=== PATIENT | male | born 1975 | race Caucasian/White ===

== ENCOUNTER 2025-01-27 18:54 | Emergency (ER) | payer MEDICAID, SELFPAY ==
[2025-01-27 19:54] VITALS: BP 160/94; PULSE 87; RESP 20; TEMP 36.9; O2SAT 98; BMI 32.3
--- NOTE | 2025-01-27 20:14 | ED_ITS ---
Discharge Plan Disposition Patient Disposition: Home, Self-Care Condition: Good Prescriptions Prescriptions: New metformin 1,000 mg tablet 1,000 mg PO DAILY Qty: 30 0RF Referrals Follow up/Referrals: Devan Sandoval DO [Staff Physician, Orthopedics] - See instructions Provider,Referral, [Primary Care Provider, Medical] - See instructions Activity Restrictions/Add. Instructions Additional Instructions/Restrictions: I encourage you to follow-up with a primary care physician on the list provided to you to help manage your diabetes and provide long-term care. You are also being referred to Dr. Sandoval with orthopedic surgery for your carpal tunnel syndrome. I encourage you to wear the splint on your arm at all times until you are able to be seen by the orthopedic surgeon. You can take Tylenol and NSAIDs, such as ibuprofen, to help with your symptoms in the meantime. Clinical Impressions Clinical Impression: Acute carpal tunnel syndrome, Acute hyperglycemia Print Language Print Language: Lao Discharge ED Provider: Ty Harper General Adult HPI General Chief complaint: PAIN Stated complaint: Right hand pain Time Seen by Provider: 01/27/25 19:48 Mode of Arrival: Ambulatory Source of Information: Patient and Spouse Description of Symptoms (Recalled from ER Triage Doc. 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 Pt reports he is a diabteic as well but has been out of insulin and metofrmin due to no PCP History of Present Illness HPI narrative: Delbert Lazo is a 49y male with a history of diabetes who presents to the emergency department for complaints of right hand pain and numbness. Patient notes that 13 years ago, he was told that he needs carpal tunnel surgery, however he lost weight and never had the surgery. He states that on , he closed his fist and felt pain and numbness and tingling along his thumb, first digit and half of his third digit. He states that his painful and difficult to pinch using those fingers. He states that he feels like something is catching in his wrist. He has been taking ibuprofen without relief. He also states that he has not had insulin in 6 months and ran out of his metformin and another diabetic medication a few days ago. They state that his blood sugar ranges from 250-4 100s, however he is otherwise asymptomatic. He denies any trauma to the hand. Related Data Previous Rx's ?Medication ?Instructions ?Recorded metformin 1,000 mg tablet 1,000 mg PO DAILY #30 tabs 0 01/27/25 Allergies Allergy/AdvReac Type Severity Reaction Status Date / Time No Known Allergies Allergy Verified 01/27/25 19:58 [facility] Disclaimer: The information contained in this section may have been updated after the patient was seen, as this information can be updated by other users. Social History Smoking Status: Never smoker alcohol intake: never current occupational status: employed Travel in the last 8 weeks?: None ROS Obtained: Yes Systems reviewed as appropriate & no additional complaints except as documented Physical Exam General General appearance: alert and in no apparent distress Head Head exam: atraumatic Eye Eye exam: Present normal appearance ENT ENT exam: Present normal external ear exam Neck Neck exam: Present full ROM Chest Chest inspection: Present symmetric chest wall rise Respiratory Respiratory exam: Present normal lung sounds bilaterally; Absent respiratory distress Cardiovascular Cardiovascular exam: Present regular rate and normal rhythm Abdominal Exam Abdominal exam: Present soft; Absent tenderness or guarding exam: Present deferred Extremities Exam Extremities exam: Present normal inspection and other (Right upper extremity: Positive Tinel sign. Flexor and tendon function intact throughout all fingers and joint spaces. 2+ radial pulse. Subjective decrease sensation over the 1st, 2nd and 3rd digits. Unable to perform Phalen test secondary to significant symptoms.) Back Exam Back exam: Present normal inspection Neurological Exam Neurological exam: Present alert and oriented X3 Psychiatric Psychiatric exam: Present normal affect Skin Skin exam: Present warm and dry Medical Decision Making Medical Records Screening: Per USPSTF and CDC recommendations, given the prevalence of disease in our region, it is our hospital?s policy to screen for HIV and viral Hepatitis for all patients aged 18 and over and those with ongoing risk factors. Darryl Inquiry Pt receiving controlled substance: No Vital Signs: 01/27/25 19:54 Temperature 98.4 F Temperature Source Oral Pulse Rate [Right] 87 Respiratory Rate 20 Blood Pressure [Right Arm] 160/94 H Blood Pressure Mean [Right Arm] 116 02 Sat by Pulse Oximetry 98 Oxygen Delivery Method Room Air Medical Decision Narrative: Delbert Lazo is a 49y male with a history of diabetes who presents to the emergency department for complaints of right hand pain and numbness. Patient notes that 13 years ago, he was told that he needs carpal tunnel surgery, however he lost weight and never had the surgery. He states that on , he closed his fist and felt pain and numbness and tingling along his thumb, first digit and half of his third digit. He states that his painful and difficult to pinch using those fingers. He states that he feels like something is catching in his wrist. He has been taking ibuprofen without relief. He also states that he has not had insulin in 6 months and ran out of his metformin and another diabetic medication a few days ago. They state that his blood sugar ranges from 250-4 100s, however he is otherwise asymptomatic. He denies any trauma to the hand. On arrival, patient is hypertensive with blood pressure 160/94, heart rate within normal limits, afebrile, breathing fine on room air with oxygen saturation 98% SpO2. Physical exam, stated above, revealed an overall well-appearing male in no distress. He notes that he is right-handed and uses that extremity a lot while at work. He has positive Tinel sign and subjective numbness and tingling over the first third digits of the right hand. Flexor and extensor function intact throughout all digits and joint spaces. No cellulitic changes. Less than 2-second capillary refill. There is low concern for any traumatic bony pathology as patient did not have any traumatic mechanism with the onset of symptoms. There is low concern for any vascular pathology as patient has good capillary refill and strong palpable pulses. Physical exam and symptomatology are most consistent with carpal tunnel syndrome and no x-ray or CT imaging is indicated at this time.. Given this, will give patient a thumb spica splint and referral to Dr. Sandoval with orthopedic surgery as he may need carpal release surgery. Instructed him to take Tylenol and ibuprofen to help with symptoms. Patient's glucose is elevated over 400 today, consistent with his diabetes being nonmedicated. Will provide patient with prescription for 30-day supply of metformin and will give list of primary care providers for him to establish care for someone to manage his diabetes more long-term. Return precautions were given. All questions were answered. He demonstrated understanding and was in agreement this plan. He was then discharged from the emergency department in stable condition Critical Care Critical Care Time Critical Care Time: No
[2025-01-27 20:17] VITALS: BP 168/98; PULSE 87; RESP 18; TEMP 36.9; O2SAT 99
== END 2025-01-27 20:21 | disposition home or self-care (01) ==
PROVIDERS: Emergency Provider Student in an Organized Health Care Education/Training Program
DX: M79.641 Pain in right hand (principal); G56.01 Carpal tunnel syndrome, right upper limb; E11.65 Type 2 diabetes mellitus with hyperglycemia
CPT/HCPCS: 99283

== ENCOUNTER 2025-01-30 11:54 | Outpatient (CLI) | payer MEDICAID, SELFPAY ==
--- NOTE | 2025-01-30 | XR_ITS ---
FINAL REPORT CLINICAL HISTORY: .carpal tunnel, pain of the 2nd digit on lateral sides FINDINGS: RIGHT HAND Three views were obtained. There is no fracture or dislocation. There is mild osteoarthritis of the DIP joints, most pronounced of the third digit. No soft tissue abnormality is identified. IMPRESSION: Mild osteoarthritis. Reviewed, Interpreted and Dictated by Cece Freeman MD Transcribed by Ame Hillman Authenticated and [facility]
--- NOTE | 2025-01-30 11:58 | XR_ITS ---
FINAL REPORT CLINICAL HISTORY: right wrist pain FINDINGS: RIGHT WRIST Three views were obtained. There is no fracture or dislocation. The joint spaces appear normal. No soft tissue abnormality is identified. IMPRESSION: No acute process. Reviewed, Interpreted and Dictated by Cece Freeman MD Transcribed by Ame Hillman Authenticated and [facility]
== END 2025-01-30 23:59 | disposition home or self-care (01) ==
LOC: RAD 11:55
PROVIDERS: Visit Provider Physician Assistant
DX: M19.041 Primary osteoarthritis, right hand (principal); M25.531 Pain in right wrist
CPT/HCPCS: 73110; 73130

== ENCOUNTER 2025-01-30 13:18 | Outpatient (CLI) | payer MEDICAID, SELFPAY | END 2025-01-30 23:59 | disposition home or self-care (01) | LOC: RAD 13:19 | PROVIDERS: Visit Provider Physician Assistant | DX: M65.30 Trigger finger, unspecified finger (principal) ==

== ENCOUNTER 2025-01-31 14:47 | Emergency (ER) | payer MEDICAID, SELFPAY ==
[2025-01-31] VITALS (7 sets, daily range): BP systolic 135–172; BP diastolic 74–101; PULSE 62–78; RESP 16–18; TEMP 36.6–36.7; O2SAT 97–100; BMI 32.3
--- NOTE | 2025-01-31 15:21 | CA_ITS ---
FINAL REPORT TECHNIQUE: Graded compression, spectral analysis and ultrasound images of the venous system of the right upper extremity were obtained. 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 The other segments are fully compressible and demonstrate no evidence of thrombosis. No definite involvement of the subclavian vein. IMPRESSION: Complete thrombosis right axillary vein. Reviewed, Interpreted and Dictated by Cece Freeman MD Transcribed by Jsoeline Cooper Authenticated and [facility]
--- NOTE | 2025-01-31 15:21 | CT_ITS ---
PROCEDURE INFORMATION: Exam: CTA Right Upper Extremity With Contrast Exam date and time: 01/31/2025 5:19 PM Age: 49 years old Clinical indication: Swelling; Hand; Right; Additional info: Swelling right hand, traumatic injury, R/O vasc occlus TECHNIQUE: Imaging protocol: Computed tomographic angiography of the right upper extremity with contrast, including non-contrast images if performed. 3D rendering (Not supervised by radiologist): MIP and/or 3D reconstructed images were created by the technologist. Radiation optimization: All CT scans at this facility use at least one of these dose optimization techniques: automated exposure control; mA and/or kV adjustment per patient size (includes targeted exams where dose is matched to clinical indication); or iterative reconstruction. Contrast material: ISOVUE 370; Contrast volume: 80 ml; Contrast route: INTRAVENOUS (IV); COMPARISON: CT ANGIO UE RT 01/31/2025 4:11 PM FINDINGS: Right subclavian artery: No occlusion or significant stenosis. Axillary artery: No occlusion or significant stenosis. Brachial artery: No occlusion or significant stenosis. Radial artery: No occlusion or significant stenosis. Ulnar artery: No occlusion or significant stenosis. Soft tissues: Unremarkable. IMPRESSION: Unremarkable CTA of the right upper extremity.
--- NOTE | 2025-01-31 15:30 | ED_ITS ---
Discharge Plan Disposition Patient Disposition: Home, Self-Care Condition: Good Prescriptions Prescriptions: New Eliquis DVT-PE Treat 30D Start 5 mg (74 tabs) tablets,dose pack 5 mg PO BID Qty: 74 0RF No Action celecoxib [Celebrex] 50 mg capsule 50 mg PO BID Qty: 60 2RF tramadol 50 mg tablet 50 mg PO Q8H PRN (Reason: pain) Qty: 30 0RF cyclobenzaprine 10 mg tablet 10 mg PO HS PRN (Reason: muscle spasm) Qty: 30 0RF metformin 1,000 mg tablet 1,000 mg PO DAILY Qty: 30 0RF Referrals Follow up/Referrals: Devan Sandoval DO [Staff Physician, Orthopedics] - See instructions Hector Dixon MD [Staff Physician, Oncology] - See instructions Provider,MD Bisi [Primary Care Provider, Medical] - See instructions Activity Restrictions/Add. Instructions Additional Instructions/Restrictions: You were evaluated in the emergency department today. CT scans do not show any arterial occlusions or blockages, but you do have a blood clot in one of your veins of your right arm. For this, we are starting you on a blood thinner called Eliquis. Please pick this up at clinic pharmacy, where they will help get a prior authorization for your insurance. Make note that blood thinners increase your risk of bleeding in the event of falls or traumatic injuries, such as brain bleeds. They also increased risk of GI bleeding or blood in your stools. Return to the emergency department right away for new or worsening symptoms such as chest pain, shortness of breath, or other concerns. Please call orthopedics to schedule an outpatient appointment for follow-up of your hand pain. I also recommend follow-up with Dr. Nicolas with hematology given this blood clot, since you do not have any other known risk factors. 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 by RN): Pt presents for evaluation of right hand pain x 7 days. Pt states the pain started after he had been pressure washing. Pt states pain starts in his hand and radiates to his elbow. Pt states he was seen this AM at the orthopedic clinic History of Present Illness HPI narrative: This patient is a 49-year-old male with past medical history of diabetes presenting to the emergency department for evaluation of concern for right hand pain for 1 week. Patient was evaluated here 01/27/2025 for right hand pain and numbness in the setting of prior history of carpal tunnel syndrome. He had pain and felt like something scratching in his wrist and he was able to close his hand, so x-rays were obtained which were negative. He was deemed to be neurovascularly intact and appropriate for discharge with orthopedic follow-up. He followed up with orthopedics today, where there was concern noted for possible vascular occlusion/blood clot, and he was sent to the emergency department to obtain an angiogram of the right upper extremity to look for occlusion or vascular pathology. Patient states since being evaluated here, he developed significant pain in his right index finger, especially on the palmar surface of the finger. He notes it is tender to palpation. He states that he is able to move it, but with any active attempted flexion, he has severe pain and feels like his hands going to explode. He denies any known traumatic injuries or wounds, such as puncture wounds or breaks in the skin. He denies any history of blood clots or clotting issues. No fevers, chills, or systemic symptoms. Related Data Previous Rx's ?Medication ?Instructions ?Recorded metformin 1,000 mg tablet 1,000 mg PO DAILY #30 tabs 0 01/27/25 celecoxib 50 mg capsule (Celebrex) 50 mg PO BID #60 ca ps 01/30/25 apixaban 5 mg (74 tabs) tablets in 5 mg PO BID #74 tab s 01/31/25 a dose pack (Eliquis DVT-PE Treat 30D Start) cyclobenzaprine 10 mg tablet 10 mg PO HS PRN muscle sp asm #30 01/31/25 tabs tramadol 50 mg tablet 50 mg PO Q8H PRN pain #30 ta bs 01/31/25 Allergies Allergy/AdvReac Type Severity Reaction Status Date / Time No Known Allergies Allergy Verified 01/31/25 13:50 [facility] Disclaimer: The information contained in this section may have been updated after the patient was seen, as this information can be updated by other users. Social History Smoking Status: Never smoker alcohol intake: never current occupational status: employed Travel in the last 8 weeks?: None Have you lived/traveled outside US in past 30 days?: No Contact w/someone who lives/traveled outside US past 30 days?: No Exposure to someone with infectious disease in past 14 days?: No Do you have a fever (greater than 100.4 F or 38 C)?: No Have you tested positive for COVID-19?: No Exposed to someone with COVID-19 in past 14 days?: No Do you have a sore throat?: No Do you have a cough?: No Do you have any weakness?: No Do you have any diarrhea?: No Are you experiencing any unusual bleeding?: No Do you have any muscle aches/pain?: No Do you have any abdominal pain?: No Are you experiencing loss of taste or smell?: No ROS Obtained: Yes All systems reviewed & no additional complaints except as documented Physical Exam General General appearance: alert and in no apparent distress Head Head exam: atraumatic and normocephalic Eye Eye exam: Present normal appearance, PERRL and EOMI ENT ENT exam: Present normal exam, normal oropharynx, mucous membranes moist and normal external ear exam Neck Neck exam: Present normal inspection, full ROM and trachea midline; Absent tenderness Chest Chest inspection: Present normal inspection and symmetric chest wall rise; Absent tenderness Respiratory Respiratory exam: Present normal lung sounds bilaterally; Absent respiratory distress, wheezes, stridor or accessory muscle use Cardiovascular Cardiovascular exam: Present regular rate and normal rhythm Abdominal Exam Abdominal exam: Present soft; Absent distention, tenderness or guarding Extremities Exam Extremities exam: Present tenderness, normal capillary refill, edema and other (Swelling of the right hand. Tenderness to palpation of the flexor surface of the right index finger. No redness, warmth, or skin lesions. Sensation intact. Full passive range of motion, but pain with active flexion.); Absent full ROM Back Exam Back exam: Present normal inspection and full ROM; Absent tenderness Neurological Exam Neurological exam: Present alert, oriented X3, CN II-XII intact and normal gait; Absent motor sensory deficit Psychiatric Psychiatric exam: Present normal affect and normal mood Skin Skin exam: Present warm and dry Medical Decision Making Medical Records Medical records reviewed: Yes I reviewed the patient's medical records. Screening: Per USPSTF and CDC recommendations, given the prevalence of disease in our region, it is our hospital?s policy to screen for HIV and viral Hepatitis for all patients aged 18 and over and those with ongoing risk factors. Darryl Inquiry Pt receiving controlled substance: No Vital Signs: 01/31/25 14:55 01/31/25 16:22 01/31/25 16:30 Temperature 98 F Temperature Source Oral Pulse Rate 78 64 Pulse Rate [Right] 70 Respiratory Rate 18 Blood Pressure 157/94 H 169/89 H Blood Pressure [Right Arm] 172/88 H Blood Pressure Mean [Right Arm] 116 Blood Pressure Source Blood Pressure Source [Right Arm] Automatic Cuff Blood Pressure Position Blood Pressure Position [Right Arm] Sitting 02 Sat by Pulse Oximetry 100 98 98 Oxygen Delivery Method Room Air 01/31/25 17:31 01/31/25 18:00 01/31/25 18:12 Temperature Temperature Source Pulse Rate 62 70 65 Pulse Rate [Right] Respiratory Rate Blood Pressure 172/95 H 169/101 H 167/95 H Blood Pressure [Right Arm] Blood Pressure Mean [Right Arm] Blood Pressure Source Blood Pressure Source [Right Arm] Blood Pressure Position Blood Pressure Position [Right Arm] 02 Sat by Pulse Oximetry 99 99 99 Oxygen Delivery Method Room Air 01/31/25 18:30 Temperature 98.1 F Temperature Source Oral Pulse Rate 75 Pulse Rate [Right] Respiratory Rate 16 Blood Pressure 135/74 Blood Pressure [Right Arm] Blood Pressure Mean [Right Arm] Blood Pressure Source Automatic Cuff Blood Pressure Source [Right Arm] Blood Pressure Position Supine Blood Pressure Position [Right Arm] 02 Sat by Pulse Oximetry Oxygen Delivery Method Room Air Lab Data Lab results reviewed: Yes I reviewed the patient's lab results. Lab Results 01/31/25 15:37: WBC 7.5, RBC 5.05, Hgb 15.5, Hct 43.5, MCV 86.1, MCH 30.7, MCHC 35.6 H, RDW 12.0, Plt Count 272, MPV 9.9, Neut % (Auto) 63.5, Lymph % (Auto) 25.6, Braxton % (Auto) 7.6, Eos % (Auto) 2.3, Baso % (Auto) 0.7, Neut # (Auto) 4.8, Lymph # (Auto) 1.9, Braxton # (Auto) 0.6, Eos # (Auto) 0.2, Baso # (Auto) 0.1, ESR 12, PT 11.6, INR 1.05, APTT 24.3, Sodium 136, Potassium 4.2, Chloride 101, Carbon Dioxide 28, Anion Gap 11.2, BUN 17, Creatinine 0.70, Estimated Creat Clear 166, Estimated GFR 120, Est GFR ( Amer) 146, Glucose 372 H, Calcium 9.1, C-Reactive Protein 1.5 01/31/25 15:37 01/31/25 15:37 Orders (Tests/Meds): ED MEDICATIONS Discontinued Medications Generic Name Dose Route Start Last Admin Trade Name Freq PRN Reason Stop Dose Admin Apixaban 5 mg 01/31/25 18:12 01/31/25 18:44 Apixaban 5mg Tablet PO 01/31/25 18:13 5 mg ONCE ONE Administration Lactated Ringer's 1,000 mls @ 999 mls/hr 01/31/25 17:01 01/31/25 17:18 Lactated Ringer's 1000 Ml Bag IV 01/31/25 18:01 999 mls/hr .Q1H1M ONE Administration Iopamidol 80 ml 01/31/25 16:10 01/31/25 16:21 Iopamidol-370 (76%);100ml Bottle IV 01/31/25 16:11 80 ml ONCE ONE Administration Iopamidol 80 ml 01/31/25 16:13 01/31/25 16:21 Iopamidol-370 (76%);100ml Bottle IV 01/31/25 16:14 80 ml ONCE ONE Administration Iopamidol 80 ml 01/31/25 17:26 01/31/25 17:27 Iopamidol-370 (76%);100ml Bottle IV 01/31/25 17:27 80 ml ONCE ONE Administration Ketorolac Tromethamine 15 mg 01/31/25 15:28 01/31/25 15:37 Ketorolac 30mg/Ml Vial IV 01/31/25 15:29 15 mg ONCE ONE Administration Morphine Sulfate 4 mg 01/31/25 17:10 01/31/25 17:18 Morphine 4mg/Ml Syringe IV 01/31/25 17:11 4 mg ONCE ONE Administration Ondansetron HCl 4 mg 01/31/25 17:10 01/31/25 17:18 Ondansetron 4mg/2ml Vial IV 01/31/25 17:11 4 mg ONCE ONE Administration Oxycodone HCl 10 mg 01/31/25 18:23 01/31/25 18:44 Oxycodone 5mg Immediate Release Tablet PO 01/31/25 18:24 10 mg ONCE ONE Administration Sodium Chloride 40 ml 01/31/25 16:10 01/31/25 16:20 0.9 % Sodium Chloride 50 Ml Vial IV 01/31/25 16:11 40 ml ONCE ONE Administration Sodium Chloride 10 ml 01/31/25 16:10 01/31/25 16:21 Sodium Chloride 0.9% 10ml Syr (Rad Only) IV 01/31/25 16:11 10 ml ONCE ONE Administration Sodium Chloride 40 ml 01/31/25 16:13 01/31/25 16:21 0.9 % Sodium Chloride 50 Ml Vial IV 01/31/25 16:14 40 ml ONCE ONE Administration Sodium Chloride 10 ml 01/31/25 17:26 01/31/25 17:27 Sodium Chloride 0.9% 10ml Syr (Rad Only) IV 01/31/25 17:27 10 ml ONCE ONE Administration Sodium Chloride 50 ml 01/31/25 17:26 01/31/25 17:27 0.9 % Sodium Chloride 50 Ml Vial IV 01/31/25 17:27 50 ml ONCE ONE Administration ORDERS Category Date Time Status CT angio UE RT Stat Cat Scan 01/31/25 15:21 Completed CTA Chest [CT angio chest PE protocol] Stat Cat Scan 01/31/25 15:50 Completed BMP [Basic Metabolic Panel] Stat Lab 01/31/25 15:37 Completed CRP [C-Reactive Protein] Stat Lab 01/31/25 15:37 Completed Complete Blood Count Auto Diff Stat Lab 01/31/25 15:37 Completed ESR [Erythrocyte Sedimentation Rate] Stat Lab 01/31/25 15:37 Completed PT INR [Prothrombin Time INR] Stat Lab 01/31/25 15:37 Completed PTT [Activated Partial Thrombo Time] Stat Lab 01/31/25 15:37 Completed CA venous doppler UE RT Stat Y 01/31/25 15:21 Completed Medical Decision Narrative: In summary, this patient is a 49-year-old male presenting to the Emergency Department for evaluation of right hand pain and swelling. Differential diagnoses considered include but are not limited to cellulitis, flexor tenosynovitis, DVT, arterial occlusion, tendon injury, among others. Ruling out the most morbid conditions drove assessment. It should be noted patient's history includes diabetes which may or may not be at goal therapy. This complicates all aspects of care by increasing patient's risk for morbidity. I reviewed patient's past medical records and noted patient in the ED 01/27 as well as by orthopedics yesterday and today as detailed in HPI. On exam, the patient is sitting upright in no acute distress. He has tenderness to palpation of the palmar and radial aspects of the right index finger with no redness, warmth, or skin color changes. No wounds or lesions. He is warm well- perfused with intact sensation distally. He has pain with range of motion but range of motion is preserved. Workup included CBC, CMP, ESR, CRP, coags, DVT ultrasound of the right upper extremity, and CTA of the right upper extremity. He is initially given IV Toradol for symptomatic improvement of pain. I independently interpreted DVT ultrasound prior to the radiologist read and noted axillary vein thrombosis. Please see their read for final interpretation. CTA PE protocol was also added onto workup given this. Patient went for CTA, however radiology noted that the CTA did not demonstrate any contrast in the right upper extremity to evaluate for arterial occlusion. Given this, it had to be repeated. Patient's pain recurred again though it initially improved with Toradol, so he was then given IV morphine and Zofran. Labs were obtained that demonstrated reassuring CBC with no significant leukocytosis or anemia. Platelet count is normal. Chemistry is normal with normal inflammatory markers including ESR and CRP.. CTAs obtained demonstrated no arterial occlusion on my independent interpretation. No PE. Please radiology read for final interpretation On reassessment, the patient is complaining continued pain. I gave him oral oxycodone. The pain is all in his index finger. Ultimately, I called and closed the loop with Dr. Sandoval with orthopedics who recommended continued outpatient follow-up with orthopedics for his finger. For his DVT, I am starting him on oral Eliquis and advise that he follow-up with hematology given that I do not have any known provocation for this clot. He was given instructions for use. We did have conversation of the risk versus benefit, including risk of bleeding such as brain bleeds and GI bleeds. He expressed understanding agreement. He was started on Eliquis and discharged home with plan for close outpatient follow-up with orthopedics, PCP, and hematology. Strict return precautions given Critical Care Critical Care Time Critical Care Time: Yes Attestation: On 01/31/25, the high probability of a clinically significant, sudden or life threatening deterioration of the following system(s) required my full and direct attention, intervention and personal management. The time I documented below is in addition to time spent performing reported procedures but includes the following listed in this critical care notation. Total Time Total Critical Care Time: 35
[2025-01-31] MEDS: KETOROLAC 30MG/ML VIAL 15 MG IV (15:37)
[2025-01-31 15:49] LABS: Hematocrit 43.5 % (42.0-52.0); Hemoglobin 15.5 g/dL (14.1-18.0); Immature Granulocytes % 0.3 %; Mean Corpuscular HGB Conc 35.6 g/dL (31.8-35.4); Mean Corpuscular Hemoglobin 30.7 pg (27.0-31.2); Mean Corpuscular Volume 86.1 fl (80-94); Nucleated Red Blood Cells % 0 %; Platelet Count 272 K/mm3 (142-424); Red Blood Count 5.05 M/mm3 (4.60-6.20); Red Cell Distribution Width-SD 37.5 fL; White Blood Count 7.5 K/mm3 (4.8-10.8)
--- NOTE | 2025-01-31 15:50 | CT_ITS ---
FINAL REPORT CLINICAL HISTORY: axillary thrombus on US COMPARISON: None FINDINGS: CTA CHEST WITH CONTRAST TECHNIQUE: Thin section axial CT with IV contrast supplemented with 3D reconstructed MIP images. This study was performed with techniques to keep radiation doses as low as reasonably achievable, (ALARA). Individualized dose reduction techniques using automated exposure control or adjustment of mA and/or kV according to the patient's size were employed. FINDINGS: Pulmonary vessels enhance in a normal fashion without evidence of embolic disease. Thoracic aorta is normal in caliber without evidence of aneurysm or dissection. The branching vessels are widely patent as well. Specifically, the right subclavian and axillary arteries are patent. The left subclavian and axillary arteries are obscured by streak artifact from venous contrast on the left side. No acute lung disease is present . No pleural or pericardial effusion is seen . No adenopathy or mass lesion is present . In the upper abdomen, note is made of fatty infiltration of the liver. IMPRESSION: 1. No evidence of pulmonary embolism. 2. There is no evidence of thoracic aortic abnormality or stenosis/occlusion of the right subclavian or axillary arteries. Reviewed, Interpreted and Dictated by Cece Freeman MD Transcribed by Tatum Blanco Authenticated and [facility]
[2025-01-31 15:51] LABS: Chloride 101 mmol/L (98-107)
[2025-01-31 15:52] LABS: Potassium 4.2 mmoL/L (3.5-5.1); Sodium 136 mmol/L (136-145)
[2025-01-31 15:54] LABS: Blood Urea Nitrogen 17 mg/dl (9-20); Creatinine Clearance Estimated 166 mL/min (50-200); Creatinine,Serum 0.70 mg/dl (0.66-1.25); Estimated Glomerular Filt Rate 120 ml/min (>60); GFR (African American) 146 ML/MIN (>60)
[2025-01-31 15:55] LABS: Anion Gap 11.2 mEq/L (5-15); Calcium 9.1 mg/dl (8.4-10.2); Carbon Dioxide 28 mmol/L (22.0-30.0); Glucose 372 mg/dl (74-100)
[2025-01-31 16:00] LABS: C-Reactive Protein 1.5 mg/L (0-4)
[2025-01-31] MEDS: 0.9 % SODIUM CHLORIDE 50 ML VIAL 40 ML IV ×2 (16:20→16:21)
[2025-01-31] MEDS: SODIUM CHLORIDE 0.9% 10ML SYR (RAD ONLY) 10 ML IV ×2 (16:21→17:27)
[2025-01-31] MEDS: IOPAMIDOL-370 (76%);100ML BOTTLE 80 ML IV ×3 (16:21→17:27)
[2025-01-31 17:12] LABS: Activated Partial Thrombo Time 24.3 seconds (22.8-30.6); INR 1.05 (0.9-1.1); Prothrombin Time 11.6 seconds (10.1-12.5)
[2025-01-31] MEDS: ONDANSETRON 4MG/2ML VIAL 4 MG IV (17:18)
[2025-01-31] MEDS: MORPHINE 4MG/ML SYRINGE 4 MG IV (17:18)
[2025-01-31] MEDS: LACTATED RINGERS 1000ML 1,000 ML 999 ML IV (17:18)
[2025-01-31] MEDS: 0.9 % SODIUM CHLORIDE 50 ML VIAL IV (17:27)
[2025-01-31] MEDS: APIXABAN 5MG TABLET 5 MG PO (18:44)
[2025-01-31] MEDS: OXYCODONE 5MG IMMEDIATE RELEASE TABLET 10 MG PO (18:44)
== END 2025-01-31 18:57 | disposition home or self-care (01) ==
PROVIDERS: Emergency Provider Emergency Medicine
DX: I82.A11 Acute embolism and thrombosis of right axillary vein (principal); M79.641 Pain in right hand; I10 Essential (primary) hypertension
CPT/HCPCS: 71275; 73206; 80048; 85025; 85610; 85651; 85730; 86140; 93971; 96361; 96372; 96374; 96375; 99291; J1885; J2270; J2405; J7120; Q9967

== ENCOUNTER 2025-02-06 15:21 | Outpatient (CLI) | payer MEDICAID, SELFPAY ==
[2025-02-07 15:12] LABS: Beta-2 Glycoprotein I Ab, IgG <9 (0-20); Beta-2 Glycoprotein I Ab, IgM <9 (0-32)
[2025-02-07 16:13] LABS: Anti-Cardio Antibody IgM <9 MPL U/mL (0-12); Anti-Cardiolipin Antibody IgG <9 GPL U/mL (0-14)
== END 2025-02-06 23:59 | disposition home or self-care (01) ==
LOC: LAB 15:22
PROVIDERS: Visit Provider Internal Medicine Medical Oncology
DX: I82.A11 Acute embolism and thrombosis of right axillary vein (principal); I82.622 Acute embolism and thrombosis of deep veins of left upper extremity
CPT/HCPCS: 36415; 81240; 81241; 85300; 85301; 85302; 85306; 86146; 86147

== ENCOUNTER 2025-02-07 10:26 | Outpatient (CLI) | payer MEDICAID, SELFPAY | END 2025-02-07 23:59 | disposition home or self-care (01) | LOC: RT 10:27 | PROVIDERS: Visit Provider Internal Medicine | DX: I49.8 Other specified cardiac arrhythmias (principal); I49.1 Atrial premature depolarization; I49.3 Ventricular premature depolarization | CPT/HCPCS: 93270 ==

== ENCOUNTER 2025-02-08 10:46 | Day surgery (SDC) | payer MEDICAID, SELFPAY ==
[2025-02-08] VITALS (7 sets, daily range): BP systolic 153–175; BP diastolic 67–100; PULSE 59–79; RESP 18–20; O2SAT 94–99; BMI 31.3
--- NOTE | 2025-02-08 07:32 | IR_ITS ---
APPROVED REPORT Patient Location: Outpatient PROCEDURES Ultrasound-guided right basilic venous access Right antegrade basilic venogram Mechanical thrombectomy to the right axillary and right subclavian artery extending into the superior vena cava Post thrombectomy right antegrade basilic venogram INDICATION Axillary and subclavian DVT, Paget Schroetter syndrome, Symptomatic DVT Informed consent was obtained prior to the procedure. TECHNIQUE 1% lidocaine used anesthetize the the medial aspect of the right humerus. Using ultrasound guidance the basilic vein was accessed and a 6 Romansh sheath was placed in the basilic vein. Antegrade venography was performed which suggested a possible thrombus in the subclavian artery. This was upsized to an 11 Romansh sheath and therapeutic heparin was administered. A lightening bolt 12 catheter was advanced and mechanical thrombectomy was performed. Following the procedure repeat venography demonstrated wide patency. There was indeterminate if thrombus was aspirated. At the end of procedure the sheath was removed and hemostasis was achieved using mechanical pressure patient was transferred to the postop putting in stable addition IMPRESSION Mechanical thrombectomy to the right axillary right subclavian and right superior vena cava PLAN 1. Continue anticoagulation per active DVT 2. Refer to Dr. Brodie Goodson for consideration of first rib resection for presumed thoracic outlet syndrome Electronically signed by : Adolph Camp MD 02/08/2025 14:59:47
[2025-02-08] MEDS: LIDOCAINE 1% 10ML MDV 10 ML IJ (13:13)
[2025-02-08] MEDS: HEPARIN 1,000 UNITS/500ML NS (CATH LAB) 3000 UNIT IV (13:13)
[2025-02-08] MEDS: 0.9 % SODIUM CHLORIDE 500 ML 25 ML IV (13:13)
[2025-02-08] MEDS: FENTANYL 100MCG/2ML VIAL 50 MCG IV (14:49)
[2025-02-08] MEDS: MIDAZOLAM 2MG/2ML VIAL 1 MG IV (14:50)
[2025-02-08] MEDS: MIDAZOLAM HCL 1MG/ML 5ML VIAL 1 MG IV (14:50)
[2025-02-08] MEDS: HEPARIN 1,000 UNITS/ML 10ML VIAL (CATH LAB) 5000 UNIT IV (14:50)
[2025-02-08] MEDS: IOPAMIDOL-370 (76%);100ML BOTTLE 110 ML IV (15:12)
== END 2025-02-08 16:02 | disposition home or self-care (01) ==
LOC: CATHLAB 10:47
PROVIDERS: PCP Internal Medicine; Visit Provider Internal Medicine
DX: I82.A11 Acute embolism and thrombosis of right axillary vein (principal); R07.9 Chest pain, unspecified; R55 Syncope and collapse; E11.9 Type 2 diabetes mellitus without complications; I10 Essential (primary) hypertension; Z79.84 Long term (current) use of oral hypoglycemic drugs; Z79.01 Long term (current) use of anticoagulants; Z79.899 Other long term (current) drug therapy; Z82.49 Family history of ischemic heart disease and other diseases of the circulatory system
CPT/HCPCS: 37187; 99152; 99153; C1757; C1769; J1200; J1644; J2250; J3010; J7040; Q9967

== ENCOUNTER 2025-02-15 15:53 | Outpatient (CLI) | payer MEDICAID, SELFPAY ==
--- OUTSIDE RECORDS SUMMARY | 2025-02-16 10:09 | XMS_ITS | Encounter Summary ---
Author Organization Healthcare Address [address] [place] [address] Care Team Providers Care Butcher'S Assistant Name Role Phone Unavailable Primary Care Provider Unavailabl e Reason for Referral * Consultation (Urgent) - Authorized Specialty Diagnoses / Procedures Referred By Contact Referred To Contact Vascular Surgery / [facility] Diagnoses Paget-Schroetter syndrome Adolph Camp MD [address] [address] Phone: tel:[phone] fax:[phone] [facility] [address] [facility] [address] [place] [address] Phone: tel: fax: Referral ID Status Reason Start Date Expiration Date Visits Requested Visits Authorized [id number] Authorized Specialty Services Required 02/08/2025 08/10/2026 1 1 Scheduling Instructions Requesting ADRIANO appt for Paget-Schroetter syndrome & compartment syndrome Encounter Details Date Type Department Care Team (Late st Contact Info) Description 02/07/2025 Orders Only [facility] [place] [facility] [address] [place] [address] Jinny Dominguez, RN HOSP. SPECIAL DIAGNOSTIC FACILITIES ADMI Paget-Schroetter syndrome (Primary Dx) Social History Tobacco Use Types Packs/Day Years Used Date Smoking Tobacco: Never Sex and Gender Information Value Date Recorded Sex Assigned at Not on file Legal Sex Male 6:57 PM EDT Gender Identity Not on file Sexual Orientation Not on file documented as of this encounter Miscellaneous Notes * Progress Notes - Jinny Dominguez RN - 02/07/2025 3:31 PM EDT Requesting ADRIANO appt for Paget-Schroetter syndrome & compartment syndrome documented in this encounter Plan of Treatment Upcoming Encounters Date Type Department Care Team (Late st Contact Info) Description 03/04/2025 2:20 PM EDT Office Visit [facility] [address] [facility] [address] [place] [address] Berto Goodson MD [address] [facility] [address] [place] [address] Scheduled Referrals Name Type Priority Associated Diagnoses Order Schedule Ambulatory referral to Vascular Surgery Outpatient Referral Routine Paget-Schroetter syndrome Expected: 02/08/2025, Expires: 08/12/2026 documented as of this encounter Visit Diagnoses Diagnosis Paget-Schroetter syndrome- Primary Acute venous embolism and thrombosis of other specified veins documented in this encounter
--- OUTSIDE RECORDS SUMMARY | 2025-02-16 10:09 | XMS_ITS | Encounter Summary ---
Author Organization Healthcare Address [address] [place] [address] Care Team Providers Care Hydraulic Operator Name Role Phone Unavailable Primary Care Provider Unavailabl e Encounter Details Date Type Department Care Team (Late st Contact Info) Description 01/31/2025 Orders Only External Location [address] [place] [address] Jahaira Golden DO [address] [place] [phone] Social History Tobacco Use Types Packs/Day Years Used Date Smoking Tobacco: Never Sex and Gender Information Value Date Recorded Sex Assigned at Not on file Legal Sex Male 6:57 PM EDT Gender Identity Not on file Sexual Orientation Not on file documented as of this encounter Plan of Treatment Upcoming Encounters Date Type Department Care Team (Late st Contact Info) Description 03/04/2025 2:20 PM EDT Office Visit [facility] [address] [facility] [address]th [address] [place] [address] Berto Goodson MD [address] [facility] [address] [place] [id number] documented as of this encounter Procedures Procedure Name Priority Date/Time Associated Diagnosis Comments CT OUTSIDE IMAGES 01/31/2025 4:11 PM EDT documented in this encounter Results * CT OUTSIDE IMAGES (01/31/2025 4:11 PM EDT) Anatomical Region Laterality Modality Computed Tomogra phy 01/31/2025 4:11 PM EDT Jahaira Golden DO IMG CT PROCEDURES Final Result documented in this encounter Visit Diagnoses Not on filedocumented in this encounter
--- OUTSIDE RECORDS SUMMARY | 2025-02-16 10:09 | XMS_ITS | Encounter Summary ---
Author Organization Healthcare Address [address] [place] [address] Care Team Providers Care Case Coordinator Name Role Phone Unavailable Primary Care Provider Unavailabl e Encounter Details Date Type Department Care Team (Late st Contact Info) Description 01/31/2025 Orders Only External Location [address] [place] [address] Provider, External Social History Tobacco Use Types Packs/Day Years [...] [place] [facility] [address] [facility] [address] [place] [address] Berto oGodson MD [address] [facility] [address] [place] [address] documented as of this encounter Procedures Procedure Name Priority Date/Time Associated Diagnosis Comments CT OUTSIDE IMAGES 01/31/2025 4:18 PM EDT documented in this encounter Results * CT OUTSIDE IMAGES (01/31/2025 4:18 PM EDT) Anatomical Region Laterality Modality Computed Tomogra phy 01/31/2025 4:18 PM EDT us External Provider IMG CT PROCEDURES Final Result documented in this encounter Visit Diagnoses Not on filedocumented in this encounter
--- OUTSIDE RECORDS SUMMARY | 2025-02-16 10:09 | XMS_ITS | Encounter Summary ---
Author Organization Healthcare Address [address] [place] [address] Care Team Providers Care Teacher Education Instructor Name Role Phone Unavailable Primary Care Provider Unavailabl e Encounter Details Date Type Department Care Team (Late st Contact Info) Description 02/08/2025 Orders Only External Location [address] [place] [address] Provider, External Social History Tobacco Use Types [...] [place] [facility] [address] [facility] 5th Floor [address] [place] [address] Berto Goodson MD [address] [facility] [address] [place] [address] documented as of this encounter Procedures Procedure Name Priority Date/Time Associated Diagnosis Comments IR OUTSIDE IMAGES 02/08/2025 1:01 PM EDT documented in this encounter Results * IR OUTSIDE IMAGES (02/08/2025 1:01 PM EDT) Anatomical Region Laterality Modality X-Ray Angiograph y 02/08/2025 1:01 PM EDT us External Provider IMG IR PROCEDURES Final Result documented in this encounter Visit Diagnoses Not on filedocumented in this encounter
--- OUTSIDE RECORDS SUMMARY | 2025-02-16 10:09 | XMS_ITS | Encounter Summary ---
Author Organization Healthcare Address [address] [place] [address] Care Team Providers Care Vice President Integrated Name Role Phone Unavailable Primary Care Provider Unavailabl e Encounter Details Date Type Department Care Team (Late st Contact Info) Description 01/31/2025 Orders Only External Location [address] [place] [address] Jahaira Golden DO [address] [place] [address] Social History Tobacco Use Types Packs/Day Years [...] [place] [facility] [address] [facility] 5th Floor [address] [place] [address] Berto Goodson MD [address] [facility] [address] [place] [address] documented as of this encounter Procedures Procedure Name Priority Date/Time Associated Diagnosis Comments US OUTSIDE IMAGES 01/31/2025 3:31 PM EDT documented in this encounter Results * US OUTSIDE IMAGES (01/31/2025 3:31 PM EDT) Anatomical Region Laterality Modality Ultrasound 01/31/2025 3:31 PM EDT us Jahaira Golden DO IMG US PROCEDURES Final Result documented in this encounter Visit Diagnoses Not on filedocumented in this encounter
--- OUTSIDE RECORDS SUMMARY | 2025-02-16 10:09 | XMS_ITS | Clinical Summary ---
Author Organization Healthcare Address [address] [place] [address] Care Team Providers Care Boiler House Mechanic Name Role Phone Unavailable Primary Care Provider Unavailabl e Encounters Date Type Department Care Team Description 02/08/2025 Orders Only External Location [address] [place] [address] Provider, External 02/07/2025 Orders Only [facility] [place] Aureliano [address] [facility]. 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 Orders Only External Location [address] [place] [address] Provider, External 01/31/2025 Orders Only External Location [address] [place] [address] Jahaira Golden, 01/31/2025 Orders Only External Location [address] [place] [address] Jahaira Golden, DO from Last 3 Months Family History Medical History Relation Name Comments Lupus Mother Stroke Other 1 Diabetes Other 2 Heart attack Other 3 Relation Name Status Comments Mother Other 1 Other 2 Other 3 Social History Tobacco Use Types Packs/Day Years Used Date Smoking Tobacco: Never Sex and Gender Information Value Date Recorded Sex Assigned at Not on file Legal Sex Male 6:57 PM EDT Gender Identity Not on file Sexual Orientation Not on file Last Filed Vital Signs Vital Sign Reading Time Taken Comments Blood Pressure - - Pulse - - Temperature - - Respiratory Rate - - Oxygen Saturation - - Inhaled Oxygen Concentration - - Weight 102 kg (224 lb 4 oz) 03/29/2016 10:02 AM EDT Height 167.6 cm (5' 6 ) 03/29/2016 10:02 AM EDT Body Mass Index 36.2 03/29/2016 10:02 AM EDT Plan of Treatment Upcoming Encounters Date Type Department Care Team (Late st Contact Info) Description 03/04/2025 2:20 PM EDT Office Visit [place] [facility] [address] 5th Floor [address], [address] [place] [address] Berto Goodson MD [address] [place] [address] Health Maintenance Due Date Last Done Comments [facility]-Depression Screening 1976 [facility]-HIV Screening 1976 [facility]-Hepatitis C Screening 1976 [facility]-Infant/Child/Adol SDOH Screenings 1976 [facility]- SDOH Screenings 02/16/1994 [facility]-Adult SDOH Screenings 02/16/1994 [facility]-DTaP,Tdap,and Td Vaccine s (1 - Tdap) 02/16/1995 [facility]-Hepatitis B Vaccines (1 of 3 - 19+ 3-dose series) 02/16/1995 CT Colonography 02/16/2021 Colonoscopy 02/16/2021 FIT-DNA 02/16/2021 FIT 02/16/2021 FOBT 02/16/2021 Sigmoidoscopy 02/16/2021 [facility]-Colorectal Cancer Screening 02/16/2021 [id number] Vaccine (1 - 20 24-25 season) 2024 [facility]-Influenza Vaccine (#1) 2025 [facility]-Zoster Vaccines (1 of 2) 02/16/2026 HPV Vaccines Aged Out No longer eligi ble based on patient's age to complete this topic [facility]-HIB Vaccines Aged Out No longer e ligible based on patient's age to complete this topic [facility]-Hepatitis A Vaccines Aged Out No longer eligible based on patient's age to complete this topic [facility]-IPV Vaccines Aged Out No longer e ligible based on patient's age to complete this topic [facility]-Pneumococcal Vaccine: Pediatrics (0 to 5 Years) and At-Risk Patients (6 to 49 Years) Aged Out No long er eligible based on patient's age to complete this topic [facility]-Rotavirus Vaccines Aged Out No lo nger eligible based on patient's age to complete this topic Procedures Procedure Name Priority Date/Time Associated Diagnosis Comments IR OUTSIDE IMAGES 02/08/2025 1:[address] OUTSIDE IMAGES 01/31/2025 4:[address] OUTSIDE IMAGES 01/31/2025 4:11 PM EDT US OUTSIDE IMAGES 01/31/2025 3:31 PM EDT from Last 3 Months Results * IR OUTSIDE IMAGES (02/08/2025 1:01 PM EDT) Anatomical Region Laterality Modality X-Ray Angiograph y 02/08/2025 1:01 PM EDT us External Provider IMG IR PROCEDURES Final Result * CT OUTSIDE IMAGES (01/31/2025 4:18 PM EDT) Only the most recent of2 resultswithin the time period is included. Anatomical Region Laterality Modality Computed Tomogra phy 01/31/2025 4:18 PM EDT us External Provider IMG CT PROCEDURES Final Result * US OUTSIDE IMAGES (01/31/2025 3:31 PM EDT) Anatomical Region Laterality Modality Ultrasound 01/31/2025 3:31 PM EDT us Jahaira Golden DO IMG US PROCEDURES Final Result from Last 3 Months
== END 2025-02-15 23:59 | disposition home or self-care (01) ==
LOC: LAB.DROPOF 02-16 10:08
PROVIDERS: PCP Internal Medicine; Visit Provider Internal Medicine
DX: E11.9 Type 2 diabetes mellitus without complications (principal)
CPT/HCPCS: 82043; 82570

== ENCOUNTER 2025-02-22 12:52 | Outpatient (CLI) | payer MEDICAID, SELFPAY ==
--- NOTE | 2025-02-22 | CA_ITS ---
APPROVED REPORT EXAM: Comprehensive 2D, Doppler, and color-flow Echocardiogram Rubber Mill Operator: Ariana Wade RT(R) Ht: 5 ft 7 in Wt: 190lbs BSA: 1.98 BP: 173/94 mmHg Indications: Syncope, abn EKG, hx DVT Echo Enhancing Agent Indication: Cardiac Mass Agent(s) / Amount(s) Used: Definity 2 cc 2D Dimensions LA Volume 21.50 mL LA Volume Index 10.86 mL/m2 (M/F) 16-34 M-Mode Dimensions RVDd 3.05 cm (0.9-2.6) LA Diam 3.25 cm (1.9-4.0) LVDd 4.19 cm (3.5-5.7) LVDs 3.08 cm (3.5-5.7) IVSd 0.87 cm (0.6-1.1) PWd 0.87 cm (0.6-1.1) EF (Teich) 52.20% FS 26.50% EDV (Teich) 78.10 mL ESV (Teich) 37.30 mL LV Diastology E Decel Time 150 (160-240 msec) E/A Ratio 1.0 Mitral Valve MV E Max Kwadwo. 62.0 (40-130 cm/s) MV A Velocity 64.0 (40-130 cm/s) E/A Ratio 0.97 MV PHT 44.0 ms Left Ventricle The left ventricle is normal size. Left ventricular systolic function is normal. The left ventricular ejection fraction is within the normal range. There is normal left ventricular wall thickness. There is normal LV segmental wall motion. The left ventricular diastolic function is normal. No left ventricle thrombus noted on this study. LVEF is 60%. Right Ventricle The right ventricle is normal size. The right ventricular systolic function is normal. Atria The left atrium size is normal. The right atrium size is normal. There is no color Doppler evidence of interatrial shunt. Aortic Valve The aortic valve opens well. There is no hemodynamically significant aortic valvular stenosis. No aortic regurgitation is present. Mitral Valve The mitral valve is normal in structure. No evidence of mitral valve stenosis. Trace mitral regurgitation is present. Tricuspid Valve The tricuspid valve leaflets are thin and pliable. Trace tricuspid regurgitation. There is insufficient TR jet to estimate RVSP. Pulmonic Valve The pulmonary valve is grossly normal in structure. Trace pulmonic valve regurgitation is present. Great Vessels The aortic root is normal in size. IVC is normal in size and collapses >50% with inspiration. Pericardium There is no pericardial effusion. Other Information Study Quality: Fair Conclusion Normal biventricular systolic function. No significant valvular stenosis or regurgitation. Electronically signed by : Colleen Mercedes MD 02/22/2025 14:50:18
--- OUTSIDE RECORDS SUMMARY | 2025-02-22 12:55 | XMS_ITS | Clinical Summary ---
Author Organization Healthcare Address [address] [place] [address] Care Team Providers Care Pipe Roller Name Role Phone Unavailable Primary Care Provider Unavailabl e Encounters Date Type Department Care Team Description 02/08/2025 Orders Only External Location [address] [place] [address] Provider, External 02/07/2025 Orders Only [facility] [place] Aureliano [address] [facility]. 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 Orders Only External Location [address] [place] [address] Provider, External 01/31/2025 Orders Only External Location [address] [place] [address] Jahaira Golden, 01/31/2025 Orders Only External Location [address] [place] [address] Jahaira Golden, DO from Last [...] [facility] [address] 5th Floor [address] [place] [address] Berto Goodson MD [address] [place] [address] Health Maintenance Due Date Last [...] 02/16/2021 Sigmoidoscopy 02/16/2021 [facility]-Colorectal Cancer Screening 02/16/2021 [id number] Vaccine (1 - 20 24-25 season) 2024 [...] PROCEDURES Final Result from Last 3 Months Insurance [facility] MEDICAID
--- OUTSIDE RECORDS SUMMARY | 2025-02-22 12:55 | XMS_ITS | Encounter Summary ---
Author Organization Healthcare Address [address] [place] [address] Care Team Providers Care Program Development Manager Name Role Phone Unavailable Primary Care Provider Unavailabl e Reason for Referral * Consultation (Urgent) - Authorized Specialty Diagnoses / Procedures Referred By Contact Referred To Contact [facility] Diagnoses Paget-Schroetter syndrome Adolph Camp MD [address] [address] Phone: tel:[phone] fax:[phone] [facility] [address] [facility] 5th Floor [address], [address] [place] [address] Phone: tel: fax: Referral ID Status Reason Start Date Expiration Date Visits Requested Visits Authorized [id number] Authorized Specialty Services Required 02/08/2025 08/10/2026 1 1 Scheduling Instructions Requesting ADRIANO appt for Paget-Schroetter syndrome & compartment syndrome Encounter Details Date Type Department Care Team (Late st Contact Info) Description 02/07/2025 Orders Only [facility] [place] Aureliano [address] [place] [address] Jinny Dominguez, RN HOSP. SPECIAL DIAGNOSTIC FACILITIES [...] Description 03/04/2025 2:20 PM EDT Office Visit [facility] [address] [facility] 5th Floor [address], [address] [place] [address] Berto Goodson MD [address] [facility] [address] [place] [address] Scheduled Referrals Name Type Priority Associated Diagnoses Order Schedule Ambulatory referral to Vascular Surgery Outpatient Referral Routine Paget-Schroetter syndrome Expected: 02/08/2025, Expires: 08/12/2026 documented as of this encounter Visit Diagnoses Diagnosis Paget-Schroetter syndrome- Primary Acute venous embolism and thrombosis of other specified veins documented in this encounter
--- OUTSIDE RECORDS SUMMARY | 2025-02-22 12:55 | XMS_ITS | Encounter Summary ---
Author Organization Healthcare Address [address] [place] [address] Care Team Providers Care Marine Service Operator Name Role Phone Unavailable Primary Care Provider Unavailabl e Encounter Details Date Type Department Care Team (Late st Contact Info) Description 02/08/2025 Orders Only External Location [address] [place] [address] Provider, External Social History Tobacco Use Types [...] [place] [facility] [address] [facility] 5th Floor [address], [address] [place] [address] Berto Goodson MD [address] [facility] [address] [place] [address] documented as of this encounter Procedures Procedure [...]
--- OUTSIDE RECORDS SUMMARY | 2025-02-22 12:55 | XMS_ITS | Encounter Summary ---
Author Organization Healthcare Address [address] [place] [address] Care Team Providers Care Front Desk Receptionist Name Role Phone Unavailable Primary Care Provider Unavailabl e Encounter Details Date Type Department Care Team (Late st Contact Info) Description 01/31/2025 Orders Only External Location [address] [place] [address] Provider, External Social History Tobacco Use Types [...] [facility] [address] [facility] 5th Floor [address] [place] [address] Berto Goodson MD [address] [facility] [address] [place] [address] documented as of this encounter Procedures Procedure [...]
--- OUTSIDE RECORDS SUMMARY | 2025-02-22 12:55 | XMS_ITS | Encounter Summary ---
Author Organization Healthcare Address [address] [place] [address] Care Team Providers Care Remote Pilot Operator Name Role Phone Unavailable Primary Care Provider Unavailabl e Encounter Details Date Type Department Care Team (Late st Contact Info) Description 01/31/2025 Orders Only External Location [address] [place] [address] Jahaira Golden DO [address] [place] [address] Social History Tobacco Use Types [facility] 5[facility] Floor Wing [address], [address] [place] [address] Berto Goodson MD [address] [facility] [address] [place] [address] documented as of this encounter Procedures Procedure [...]
--- OUTSIDE RECORDS SUMMARY | 2025-02-22 12:55 | XMS_ITS | Encounter Summary ---
Author Organization Healthcare Address [address] [place] [address] Care Team Providers Care Sales Program Coordinator Name Role Phone Unavailable Primary Care Provider Unavailabl e Encounter Details Date Type Department Care Team (Late st Contact Info) Description 01/31/2025 Orders Only External Location [address] [place] [address] Jahaira Golden DO [address] [place] [address] Social History Tobacco Use Types Packs/Day Years [...] [facility] [address] [facility] 5th Floor [address] [place] [address] Berto Goodson MD [address] [facility] [address] [place] [address] documented as of this encounter Procedures Procedure [...]
[2025-02-22] MEDS: DEFINITY US ECHO CONTRAST 2ML INJ 2 MG IV (14:01)
== END 2025-02-22 23:59 | disposition home or self-care (01) ==
LOC: RT 12:52
PROVIDERS: PCP Internal Medicine; Visit Provider Internal Medicine
DX: I82.A11 Acute embolism and thrombosis of right axillary vein (principal); I82.890 Acute embolism and thrombosis of other specified veins; R55 Syncope and collapse; R94.31 Abnormal electrocardiogram [ECG] [EKG]; Z86.718 Personal history of other venous thrombosis and embolism
CPT/HCPCS: 93306; Q9957

== ENCOUNTER 2025-02-27 15:28 | Outpatient (CLI) | payer MEDICAID, SELFPAY ==
--- OUTSIDE RECORDS SUMMARY | 2025-02-27 15:29 | XMS_ITS | Encounter Summary ---
Author Organization Healthcare Address [address] [place] [address] Care Team Providers Care Corpsman Name Role Phone Unavailable Primary Care Provider Unavailabl e Encounter Details Date Type Department Care Team (Late st Contact Info) Description 01/31/2025 Orders Only External Location [address] [place] [address] Jahaira Golden DO [address] [place] [address] Social History Tobacco Use Types Packs/Day Years [...] [facility] [address] [facility] 5th Floor [address] [place] [address] Berto Goodson MD [address] [facility] [address] [place] [address] documented as of this encounter Procedures Procedure [...]
--- OUTSIDE RECORDS SUMMARY | 2025-02-27 15:29 | XMS_ITS | Encounter Summary ---
Author Organization Healthcare Address [address] [place] [address] Care Team Providers Care Unix Manager Name Role Phone Unavailable Primary Care Provider Unavailabl e Encounter Details Date Type Department Care Team (Late st Contact Info) Description 01/31/2025 Orders Only External Location [address] [place] [address] Provider, External Social History Tobacco Use Types [...] [facility] [address] [facility] 5th Floor [address] [place] [address] Berto Goodson MD [address] [facility] [address] [place] [address] documented as of this encounter Procedures Procedure [...]
--- OUTSIDE RECORDS SUMMARY | 2025-02-27 15:29 | XMS_ITS | Encounter Summary ---
Author Organization Healthcare Address [address] [place] [address] Care Team Providers Care Silo Worker Name Role Phone Unavailable Primary Care Provider Unavailabl e Reason for Referral * Consultation (Urgent) - Authorized Specialty Diagnoses / Procedures Referred By Contact Referred To Contact [facility] Diagnoses Paget-Schroetter syndrome Adolph Camp MD [address] [address] Phone: tel:[phone] fax:[phone] [facility] [address] [facility] 5th Floor [address] [place] [address] Phone: tel: fax: Referral ID Status Reason Start Date Expiration Date Visits Requested Visits Authorized [id number] Authorized Specialty Services Required 02/08/2025 08/10/2026 1 1 Scheduling Instructions Requesting ADRIANO appt for Paget-Schroetter syndrome & compartment syndrome Encounter Details Date Type Department Care Team (Late st Contact Info) Description 02/07/2025 Orders Only [facility] [place] Aureliano [address] [place] [address] Jinny Dominguez, RN HOSP. SPECIAL DIAGNOSTIC FACILITIES [...] Description 03/04/2025 2:20 PM EDT Office Visit [facility] [address] [facility] 5th Floor [address] [place] [address] Berto Goodson MD [address] [facility] [address] [place] [address] Scheduled Referrals Name Type Priority Associated Diagnoses Order Schedule Ambulatory referral to Vascular Surgery Outpatient Referral Routine Paget-Schroetter syndrome Expected: 02/08/2025, Expires: 08/12/2026 documented as of this encounter Visit Diagnoses Diagnosis Paget-Schroetter syndrome- Primary Acute venous embolism and thrombosis of other specified veins documented in this encounter
--- OUTSIDE RECORDS SUMMARY | 2025-02-27 15:30 | XMS_ITS | Encounter Summary ---
Author Organization [facility] Address [address] [place] [address] Care Team Providers Care Software Product Manager Name Role Phone Unavailable Primary Care Provider Unavailabl e Encounter Details Date Type Department Care Team (Late st Contact Info) Description 02/26/2025 Telephone [facility] [place] Aureliano [address] [place] [address] [place] [address] Social History Tobacco Use Types Packs/Day Years Used Date Smoking Tobacco: Never Sex and Gender Information Value Date Recorded Sex Assigned at Not on file Legal Sex Male 6:57 PM EDT Gender Identity Not on file Sexual Orientation Not on file documented as of this encounter Miscellaneous Notes * Telephone Encounter - Tita Foster - 02/26/2025 1:47 PM EDT Patient Name: Delbert Lazo :1975 Date:02/26/2025 Affiliate site: Referring Physician: Education/ Information provided: This Nurse Liaison left voicemail message for Delbert Lazo prior to an appointment on 03/04/2025.Provided patient with liaison contact information and encouraged patient to call with any questions, concerns or assistance needs. Will follow up with patient after appointment. Tita Foster [facility] Nurse Liaison [phone] documented in this encounter Plan of Treatment Upcoming Encounters Date Type Department Care Team (Late st Contact Info) Description 03/04/2025 2:20 PM EDT Office Visit [facility] [address] 5th Floor [address] [place] [address] Berto Goodson MD [address] [place] [address] documented as of this encounter Visit Diagnoses Not on filedocumented in this encounter
--- OUTSIDE RECORDS SUMMARY | 2025-02-27 15:30 | XMS_ITS | Clinical Summary ---
Author Organization Healthcare Address [address] [place] [address] Care Team Providers Care Inverter And Clipper Name Role Phone Unavailable Primary Care Provider Unavailabl e Encounters Date Type Department Care Team Description 02/26/2025 Telephone [facility] [place] Aureliano [address] [facility]. [address] [address] Tita Foster 02/08/2025 Orders Only External Location [address] [place] [address] Provider, External 02/07/2025 Orders Only [facility] [place] Aureliano [address] 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 Orders Only External Location [address] [place] [address] Provider, External 01/31/2025 Orders Only External Location [address] [place] [address] Jahaira Golden, 01/31/2025 Orders Only External Location [address] [place] [address] Jahaira Golden, DO from Last [...] 03/04/2025 2:20 PM EDT Office Visit [facility] [address] 5th Floor [address] [place] [address] Berto Goodson MD [address] [place] [address] Health Maintenance Due Date Last Done Comments [facility]-Depression Screening 1975 [facility]-HIV Screening 1975 [facility]-Hepatitis C Screening 1976 [facility]-/Child/Adol SDOH Screenings 1976 [facility]- SDOH Screenings 02/16/1994 [facility]-Adult SDOH Screenings 02/16/1994 [facility]-DTaP,Tdap,and Td Vaccine s (1 - Tdap) 02/16/1995 [facility]-Hepatitis B Vaccines (1 of 3 - 19+ 3-dose series) 02/16/1995 CT Colonography 02/16/2021 Colonoscopy 02/16/2021 FIT-DNA 02/16/2021 FIT 02/16/2021 FOBT 02/16/2021 Sigmoidoscopy 02/16/2021 [facility]-Colorectal Cancer Screening 02/16/2021 [id number] Vaccine (1 - 20 24-25 season) 2024 [...] Final Result from Last 3 Months Insurance [facility] MEDICAID
--- OUTSIDE RECORDS SUMMARY | 2025-02-27 15:30 | XMS_ITS | Encounter Summary ---
Author Organization Healthcare Address [address] [place] [address] Care Team Providers Care Loading Unit Tool Setter Name Role Phone Unavailable Primary Care Provider Unavailabl e Encounter Details Date Type Department Care Team (Late st Contact Info) Description 01/31/2025 Orders Only External Location [address] [place] [address] Jahaira Golden DO [address] [place] [address] Social History Tobacco Use Types [...] [facility] [address] [facility] 5th Floor [address] [place] [address] Berto Goodson MD [address] [facility] [address] [place] [address] documented as of this encounter Procedures Procedure [...]
--- OUTSIDE RECORDS SUMMARY | 2025-02-27 15:30 | XMS_ITS | Encounter Summary ---
Author Organization Healthcare Address [address] [place] [address] Care Team Providers Care Resident Care Manager Name Role Phone Unavailable Primary Care Provider Unavailabl e Encounter Details Date Type Department Care Team (Late st Contact Info) Description 02/08/2025 Orders Only External Location [address] [place] [address] Provider, External Social History Tobacco Use Types [...] [facility] [address] [facility] 5th Floor [address] [place] [address] Berto Goodson MD [address] [facility] [address] [place] [address] documented as of this encounter Procedures Procedure [...]
--- NOTE | 2025-02-27 15:40 | XR_ITS ---
FINAL REPORT CLINICAL HISTORY: mri clearance, hx of metal in eyes FINDINGS: ORBITS Look up and look down views were obtained. No fracture is identified. The sinuses are clear. No foreign body is identified. IMPRESSION: No acute process. Reviewed, Interpreted and Dictated by Cece Freeman MD Transcribed by Angela Ray Authenticated and [facility]
--- NOTE | 2025-02-27 16:15 | MR_ITS ---
PROCEDURE INFORMATION: Exam: MR Chest Without Contrast; Brachial Plexus Exam date and time: 02/27/2025 4:00 PM Age: 50 years old Clinical indication: Other: Arm pain; Additional info: Dvt, cp, syncope. Bilateral brachial plexus exam. Recent thrombus removal from right axillary and right subclavian artery. 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 Presumed thoracic outlet syndrome TECHNIQUE: Imaging protocol: MR chest without contrast. Exam focused on the brachial plexus. COMPARISON: CT ANGIO CHEST PE PROTOCOL 01/31/2025 4:18 PM FINDINGS: Nerves: Unremarkable visualized nerves and brachial plexus. Soft tissues: Unremarkable Bones/joints: Unremarkable. IMPRESSION: 1. Unremarkable brachial plexus. 2. Specifically, there is no MR evidence to suggest anatomic compression of the visualized right axillary and right subclavian vein.
== END 2025-02-27 23:59 | disposition home or self-care (01) ==
LOC: RAD 15:28
PROVIDERS: PCP Internal Medicine; Visit Provider Internal Medicine
DX: I82.A11 Acute embolism and thrombosis of right axillary vein (principal); M79.601 Pain in right arm; R07.9 Chest pain, unspecified; R55 Syncope and collapse; Z04.89 Encounter for examination and observation for other specified reasons
CPT/HCPCS: 70200; 73218

== ENCOUNTER 2025-03-12 07:22 | Outpatient (CLI) | payer MEDICAID, SELFPAY ==
--- OUTSIDE RECORDS SUMMARY | 2025-03-04 14:20 | XMS_ITS | Encounter Summary ---
Author Organization Healthcare Address [address] [place] [address] Care Team Providers Care Termite Helper Name Role Phone Rupal Levineew Chary DO Primary Care Provider [phone] Reason for Referral * Imaging (Routine) - Pending Review Specialty Diagnoses / Procedures Referred By Sia t Referred To Contact Cardiology Diagnoses Acute embolism and thrombosis of right axillary vein (CMS/HCC) Procedures VAS US Venous Duplex Upper Extremity Unilateral Right Berto Goodson MD [address] [facility] [address] [place] [address] Phone: tel: fax: Referral ID Status Reason Start Date Expiration Date Visits Requested Visits Authorized [id number] Pending Review Perform Procedure 03/04/2025 09/03/2026 1 1 Reason for Visit * Reason Comments Paget-Schroetter syndrome * Consultation (Urgent) - Closed Specialty Diagnoses / Procedures Referred By Contact Referred To Contact Vascular Surgery / [facility] Diagnoses Paget-Schroetter syndrome Adolph Camp MD [address] [facility] [address] [place] [address] Phone: tel:[phone] fax:[phone] [facility] [address] [facility] 5th Floor [address] [place] [address] Phone: tel: fax: Referral ID Status Reason Start Date Expiration Date V isits Requested Visits Authorized [id number] Closed Specialty Services Required 02/08/2025 08/10/2026 1 1 Encounter Details Date Type Department Care Team (Latest Contact Info) Description 03/04/2025 2:20 PM EDT Office Visit [facility] [address] [facility] 5th Floor [address] [place] [address] Berto Goodson MD [address] [facility] [address] [place] [address] Acute embolism and thrombosis of [...] Functional Status documented as of this encounter Plan of Treatment Scheduled Orders Name Type Priority Associated Diagnoses [...] for the patient 03/04/2025 2:03 PM EDT documented as of this encounter Care Teams Termite Helper Relationship Specialty Start Date End Date Adolph Levine DO [address] [place] [address] [place] [address] PCP - General 03/04/25 documented as of this encounter
--- NOTE | 2025-03-12 | CA_ITS ---
APPROVED REPORT Exam: Pharmacologic Technologist: Katelyn Valladares Ht: 5 ft 6 in Wt: 190 lbs BSA: 1.96 m2 HR: 57 bpm BP: 138/73 mmHg Indications: Dyspnea Medical History Medications: Apixaban, Jardiance, Metformin, Percocet, Rosuvastatin, Ozempic, Telmisartan. Stress Test Details Test: Lexiscan Reason for pharmacologic stress test: physical limitation. HR Resting HR: 57 bpm Max Heart Rate (APMHR): 171.741756 bpm Max HR Achieved: 92 bpm Target HR (85% APMHR): 145.953851 bpm % of APMHR: 53.80 Recovery HR: 70 bpm BP Resting BP: 138.0/73.0 mmHg Max BP: 161.0/80.0 mmHg Recovery BP: 142.0/73.0 mmHg ECG Resting ECG: SR baseline ST abnormalities. Stress ECG Conclusion Symptoms: chest tightness/ nausea/ dizziness. Arrhythmias/Ectopy: None. ST-T Changes: less than 0.5mm upsloping ST segment changes. Conclusion: Nondiagnostic ECG/Lexiscan. Electronically signed by : Colleen Mercedes MD 03/12/2025 18:23:07
[2025-03-12] MEDS: SODIUM CHLORIDE 0.9% 10ML SYR (RAD ONLY) 10 ML IV ×3 (07:30→10:11)
--- NOTE | 2025-03-12 07:30 | NM_ITS ---
APPROVED REPORT Exam: Nuclear Stress Test Indication: h/o mi, htn, dibetes, hyperlipidemia, fm hx, blood clots, c.p., sob, syncope, fatigue, abn ekg Patient Location: Outpatient Stress Tech: Katelyn Wong [place] Tech:Eva Cyr, ARRT RT (R)(N)(M) Ht: 5 ft 7 in Wt: 188 lbs HR: 57 bpm BP: 138/73 mmHg BSA: 1.97 m2 TID: 1.29 BMI: 29.4 History: h/o mi, htn, dibetes, hyperlipidemia, fm hx, blood clots, c.p., sob, syncope, fatigue, abn ekg Procedure: Patient received 0.4 mg of intravenous Lexiscan, resting heart rate 57 bpm, resting blood pressure 138/73 mmHg, with Lexiscan maximum heart rate achieved was 92 bpm which is % of the maximum predicted heart rate and blood pressure was 150/82 mmHg. Cardiac Stress and Resting SPECT Images: Cardiac Stress and Resting SPECT images were obtained using technetium 99m Myoview 31.3 mCi stress and 10.38 mCi at rest. Resting and stress imaging in supine and prone positions demonstrate no evidence of fixed or reversible perfusion defects. There is increase in transient ischemic dilatation ratio (TID 1.29), which may be suggestive of possible multivessel disease or balanced ischemia. Gated imaging demonstrates mild reduction global LV systolic function. LVEF is calculated at 48%. Conclusion: No evidence of fixed or reversible perfusion defects. There is increase in transient ischemic dilatation ratio (TID 1.29), which may be suggestive of possible multivessel disease or balanced ischemia. Gated imaging demonstrates mild reduction global LV systolic function. LVEF is calculated at 48%. Electronically signed by : Colleen Mercedes MD 03/12/2025 12:21:28
--- OUTSIDE RECORDS SUMMARY | 2025-03-12 07:37 | XMS_ITS | Encounter Summary ---
Author Organization Healthcare Address [address] [place] [address] Care Team Providers Care Pillowcase Turner Name Role Phone Adolph Levine DO Primary Care Provider [phone] Encounter Details Date Type Department Care Team ([facility] st Contact Info) Description 01/31/2025 Orders Only External Location [address] [place] [address] Provider, External Social History Tobacco Use Types Packs/Day Years Used Date Smoking Tobacco: Never Sex and Gender Information Value Date Recorded Sex Assigned at Not on file Legal Sex Male 6:57 PM EDT Gender Identity Not on file Sexual Orientation Not on file documented as of this encounter Plan of Treatment Not on file documented as of this encounter Procedures Procedure Name Priority Date/Time Associated Diagnosis Comments CT OUTSIDE IMAGES 01/31/2025 4:18 PM EDT documented in this encounter Results * CT OUTSIDE IMAGES (01/31/2025 4:18 PM EDT) Anatomical Region Laterality Modality Computed Tomogra phy 01/31/2025 4:18 PM EDT External Provider IMG CT PROCEDURES Final Result documented in this encounter Visit Diagnoses Not on filedocumented in this encounter Care Teams Pillowcase Turner Relationship Specialty Start Date End Date Adolph Levine DO [address] [place] [address] [place] [address] PCP - General 03/04/25 documented as of this encounter
--- OUTSIDE RECORDS SUMMARY | 2025-03-12 07:37 | XMS_ITS | Encounter Summary ---
Author Organization Healthcare Address [address] [place] [address] Care Team Providers Care Medical Technologist Blood Bank Name Role Phone Adolph Levine DO Primary Care Provider Encounter Details Date Type Department Care Team (Latest Contact Info) Description 03/04/2025 Travel Social History Tobacco Use Types Packs/Day Years Used Date Smoking Tobacco: Never Passive Smoke Exposure: Never Smokeless Tobacco: Never AUDIT-C Answer Date Recorded Frequency of Alcohol [...] on file documented as of this encounter Functional Status documented as of this encounter Plan of Treatment Not on file documented as of this encounter Visit Diagnoses Not on filedocumented in this encounter Additional Health Concerns Assessment Noted Time A fall risk assessment has been complete d for the patient 03/04/2025 2:03 PM EDT documented as of this encounter Care Teams Medical Technologist Blood Bank Relationship Specialty Start Date End Date Adolph Levine DO [address] [place] [address] [place] [address] PCP - General 03/04/25 documented as of this encounter
--- OUTSIDE RECORDS SUMMARY | 2025-03-12 07:37 | XMS_ITS | Encounter Summary ---
Author Organization [facility] Address [address] [place] [address] Care Team Providers Care Mortar Mixer Operator Name Role Phone Unavailable Primary Care Provider Unavailabl e Encounter Details Date Type Department Care Team (Late st Contact Info) Description 02/26/2025 Telephone [facility] [place] Aureliano [address] [place] [address] [place] [address] Social History Tobacco Use Types Packs/Day Years [...] up with patient after appointment. Tita Foster [facility] Nurse Liaison [phone] documented in this encounter Plan of Treatment Not on file documented as of this encounter Visit Diagnoses Not on filedocumented in this encounter
--- OUTSIDE RECORDS SUMMARY | 2025-03-12 07:37 | XMS_ITS | Encounter Summary ---
Author Organization Healthcare Address [address] [place] [address] Care Team Providers Care Per Diem Physical Therapist Assistant Name Role Phone Unavailable Primary Care Provider Unavailabl e Encounter Details Date Type Department Care Team (Late st Contact Info) Description 02/08/2025 Orders Only External Location [address] [place] [address] Provider, External Social History Tobacco Use Types [...]
--- OUTSIDE RECORDS SUMMARY | 2025-03-12 07:37 | XMS_ITS | Encounter Summary ---
Author Organization Healthcare Address [address] [place] [address] Care Team Providers Care Lead Manufacturing Engineer Name Role Phone Adolph Levine DO Primary Care Provider [phone] Encounter Details Date Type Department Care Team ([facility] st Contact Info) Description 01/31/2025 Orders Only External Location [address] [place] [address] Jahaira Golden, DO [address] [place] [address] Social History Tobacco Use Types [...] on filedocumented in this encounter Care Teams Lead Manufacturing Engineer Relationship Specialty Start Date End Date Adolph Levine DO [address] [place] [address] [place] [address] PCP - General 03/04/25 documented as of this encounter
--- OUTSIDE RECORDS SUMMARY | 2025-03-12 07:37 | XMS_ITS | Clinical Summary ---
Author Organization Healthcare Address [address] [place] [address] Care Team Providers Care Rollway Worker Name Role Phone Adolph Levine DO Primary Care Provider [phone] Allergies No known active allergies Medications Eliquis 5 MG tablet Take 1 tablet by mouth 2 times a day. 02/26/2025 Active bisoprolol (Zebeta) 5 MG tablet Take 1 tablet by mouth daily. 02/26/2025 Active rosuvastatin (Crestor) 20 MG tablet Take 1 tablet by mouth daily. 02/12/2025 Active lisinopril-hydro CHLOROthiazide 20-12.5 MG tablet Take 1 tablet by mouth daily. 02/12/2025 Active metFORMIN (Glucophage) 1000 MG tablet Take 1 tablet by mouth 2 times a day. Active empagliflozin (Jardiance) 10 MG Take by mouth daily. Active Active Problems Problem Noted Date Diagnosed Date Acute embolism and thrombosis of right axillary vein 03/04/2025 Encounters Date Type Department Care Team Description 03/07/2025 Telephone [facility] [place] [address] [place] [address] Tita Foster 03/04/2025 2:20 PM EDT Office Visit [facility] [address] [facility] 5th Floor [address] [place] [address] Berto Goodson MD Acute embolism and thrombosis of right axillary vein (CMS/HCC) (Primary Dx) 03/04/2025 Travel 02/26/2025 Telephone [facility] [address] [place] [address] Tita Foster 02/08/2025 Orders Only External Location [address] [place] [address] Provider, External 02/07/2025 Orders Only [facility] [place] [address] [facility] [place] [address] Jinny Dominguez, RN Paget-Schroetter syndrome (Primary Dx) 01/31/2025 Orders Only External Location [address] [place] [address] Provider, External 01/31/2025 Orders Only External Location [address] [place] [address] Jahaira Golden, 01/31/2025 Orders Only External Location [address] [place] [address] Jahaira Golden, DO from Last [...] Mass Index 29.56 03/04/2025 1:56 PM EDT Plan of Treatment Health Maintenance Due Date Last Done Comments [facility]-Depression Screening 1975 [facility]-HIV Screening 1975 [facility]-Hepatitis C Screening 1975 [facility]-Infant/Child/Adol SDOH Screenings 1975 [facility]-Obesity Intervention 02/16/1982 [facility]- SDOH Screenings 02/16/1994 [facility]-Adult SDOH Screenings 02/16/1994 [facility]-DTaP,Tdap,and Td Vaccine s (1 - Tdap) 02/16/1995 [facility]-Hepatitis B Vaccines (1 of 3 - 19+ 3-dose series) 02/16/1995 CT Colonography 02/16/2021 Colonoscopy 02/16/2021 FIT-DNA 02/16/2021 FIT 02/16/2021 FOBT 02/16/2021 Sigmoidoscopy 02/16/2021 [facility]-Colorectal Cancer Screening 02/16/2021 EPC-LAUOA-66 Vaccine ( - 20 24-25 season) 2024 [facility]-Influenza Vaccine [...] Ultrasound 01/31/2025 3:31 PM EDT us Jahaira N Golden DO IMG US PROCEDURES Final Result from Last 3 Months Insurance [employer] Care Teams Rollway Worker Relationship Specialty Start Date End Date Adolph Levine DO [address] [place] [address] [place] [address] PCP - General 03/04/25
--- OUTSIDE RECORDS SUMMARY | 2025-03-12 07:37 | XMS_ITS | Encounter Summary ---
Author Organization Healthcare Address [address] [place] [address] Care Team Providers Care Graining Press Operator Name Role Phone Unavailable Primary Care Provider Unavailabl e Reason for Referral * Consultation (Urgent) - Closed Specialty Diagnoses / Procedures Referred By Contact Referred To Contact Vascular Surgery / [facility] Diagnoses Paget-Schroetter syndrome Adolph Camp MD [address] [facility] [address] [place] [address] Phone: tel:[phone] fax:[phone] [facility] [address] [facility] 5th Floor [address] [place] [address] Phone: tel: fax: Referral ID Status Reason Start Date Expiration Date V isits Requested Visits Authorized [id number] Closed Specialty Services Required 02/08/2025 08/10/2026 1 1 Scheduling Instructions Requesting ADRIANO appt for Paget-Schroetter syndrome & compartment syndrome Encounter Details Date Type Department Care Team (Late st Contact Info) Description 02/07/2025 Orders Only [facility] [place] [address] [place] [address] Jinny Dominguez, RN HOSP. SPECIAL DIAGNOSTIC FACILITIES [...] documented in this encounter Plan of Treatment Scheduled Referrals Name Type Priority Associated Diagnoses Order Schedule Ambulatory referral to Vascular Surgery Outpatient Referral Routine Paget-Schroetter syndrome Expected: 02/08/2025, Expires: 08/12/2026 documented as of this encounter Visit Diagnoses Diagnosis Paget-Schroetter syndrome- Primary Acute venous embolism and thrombosis of other specified veins documented in this encounter
--- OUTSIDE RECORDS SUMMARY | 2025-03-12 07:37 | XMS_ITS | Encounter Summary ---
Author Organization Healthcare Address [address] [place] [address] Care Team Providers Care Instrumental Music Teacher Name Role Phone Adolph Levine DO Primary Care Provider [phone] Encounter Details Date Type Department Care Team (Late st Contact Info) Description 03/07/2025 Telephone [facility] [place] [facility] [address] [place] [address] [place] [address] Social History Tobacco Use Types Packs/Day Years [...] * Telephone Encounter - Tita Foster - 03/07/2025 1:39 PM EDT Patient Name:Delbert Lazo : 1975 Date:03/07/2025 Affiliate Site: [facility] Referring Physician: Dr. Zoë Almaguer/ Seen: Vascular/Dr. Goodson Future scheduling/testing needs: f/u with vascular studies, not scheduled at this time This [facility] Nurse Liaison left voicemail for Delbert Lazo following their appointment on 03/04/2025.Liaison contact information provided. Will follow up in 3 months to ensure continuum of care. Tita Foster [facility] Nurse Liaison [phone] documented in this encounter Plan of Treatment Not on file documented as of this encounter Visit Diagnoses Not on filedocumented in this encounter Additional Health Concerns Assessment Noted Time A fall risk assessment has been complete d for the patient 03/04/2025 2:03 PM EDT documented as of this encounter Care Teams Instrumental Music Teacher Relationship Specialty Start Date End Date Adolph Levine DO [address] [place] [address] PCP - General 03/04/25 documented as of this encounter
--- OUTSIDE RECORDS SUMMARY | 2025-03-12 07:37 | XMS_ITS | Encounter Summary ---
Author Organization Healthcare Address [address] [place] [address] Care Team Providers Care Administrative Law Judge Name Role Phone Adolph Levine DO Primary Care Provider [phone] Encounter Details Date Type Department Care Team ([facility] st Contact Info) Description 01/31/2025 Orders Only External Location [address] [place] [address] Jahaira Golden, [address] [place] [address] Social History Tobacco Use Types [...] on filedocumented in this encounter Care Teams Administrative Law Judge Relationship Specialty Start Date End Date Adolph Levine DO [address] [place] [address] [place] [address] PCP - General 03/04/25 documented as of this encounter
[2025-03-12] MEDS: ISOTOPE MYOVIEW (PER STUDY) 1 DOSE IV (10:08)
== END 2025-03-12 23:59 | disposition home or self-care (01) ==
LOC: RAD 07:22
PROVIDERS: PCP Internal Medicine; Visit Provider Internal Medicine
DX: I20.9 Angina pectoris, unspecified (principal); R94.39 Abnormal result of other cardiovascular function study; R94.31 Abnormal electrocardiogram [ECG] [EKG]; I10 Essential (primary) hypertension; E11.9 Type 2 diabetes mellitus without complications; E78.5 Hyperlipidemia, unspecified; R55 Syncope and collapse; I74.9 Embolism and thrombosis of unspecified artery; I25.2 Old myocardial infarction
CPT/HCPCS: 78452; 93016; 93017; 93018; A9502; J2785

== ENCOUNTER 2025-04-02 09:43 | Day surgery (SDC) | payer MEDICAID, SELFPAY ==
[2025-04-02] VITALS (12 sets, daily range): BP systolic 104–157; BP diastolic 61–96; PULSE 50–67; RESP 14–18; TEMP 36.4; O2SAT 93–98; BMI 30.4
--- NOTE | 2025-04-02 07:19 | IR_ITS ---
APPROVED REPORT Patient Location: Outpatient PROCEDURES Left heart catheterization Left ventriculogram Selective coronary angiogram INDICATION Abnormal Myoview, Angina pectoris Informed consent was obtained prior to the procedure. COMPLICATIONS NONE Estimated Blood Loss: LESS THAN 10 ML TECHNIQUE One percent lidocaine was used to anesthetize the right groin. The right femoral artery was accessed via the Seldinger technique. A 4-Kazakh sheath was placed in the right femoral artery. The JL-4 and JR-4 catheter was also used to perform left heart catheterization left ventriculogram and selective coronary angiogram. At the end of the procedure the patient was transferred to the post-op holding area in stable condition for arterial sheath removal. ANGIOGRAPHIC RESULTS The left main artery Normal The left anterior descending artery Proximally normal with a mid vessel 30 to 40% concentric stenosis The circumflex artery Normal The right coronary artery Dominant with 10% luminal regularities The VÁSQUEZ ventriculogram reveals Normal 65% The left ventricular end-diastolic pressure 10 to 15 mmHg IMPRESSION Mild to moderate mid LAD disease as described above Normal ejection fraction Normal LVEDP Persistent syncope PLAN 1. Medical management for coronary disease 2. Recommend implantable loop recorder for recurrent syncope which was not captured on Holter monitor 3. Aggressive risk factor modification Electronically signed by : Adolph Camp MD 04/02/2025 14:22:26
[2025-04-02 10:10] LABS: Hematocrit 43.7 % (42.0-52.0); Hemoglobin 15.4 g/dL (14.1-18.0); Immature Granulocytes % 0.4 %; Mean Corpuscular HGB Conc 35.2 g/dL (31.8-35.4); Mean Corpuscular Hemoglobin 31.0 pg (27.0-31.2); Mean Corpuscular Volume 87.9 fl (80-94); Nucleated Red Blood Cells % 0 %; Platelet Count 280 K/mm3 (142-424); Red Blood Count 4.97 M/mm3 (4.60-6.20); Red Cell Distribution Width-SD 37.4 fL; White Blood Count 8.4 K/mm3 (4.8-10.8)
--- NOTE | 2025-04-02 10:13 | SUR.PREOP ---
pt stated that he felt dizzy after benadryl admin. pt vitals checked. bp 145/96,hr 51,97% on room air. pt informed that this is a normal sensation after medical oncology physician. at bedside. no new orders at this time. call light within reach.
[2025-04-02 10:25] LABS: Anion Gap 12.7 mEq/L (5-15); Blood Urea Nitrogen 14 mg/dl (9-20); Calcium 9.3 mg/dl (8.4-10.2); Carbon Dioxide 27 mmol/L (22.0-30.0); Chloride 106 mmol/L (98-107); Creatinine Clearance Estimated 108 mL/min (50-200); Creatinine,Serum 1.00 mg/dl (0.66-1.25); Estimated Glomerular Filt Rate 79 ml/min (>60); GFR (African American) 96 ML/MIN (>60); Glucose 187 mg/dl (74-100); Potassium 3.7 mmoL/L (3.5-5.1); Sodium 142 mmol/L (136-145)
--- NOTE | 2025-04-02 10:43 | SUR.PREOP ---
pt's at beside. awaiting procedure.
[2025-04-02] MEDS: HEPARIN 1,000 UNITS/500ML NS (CATH LAB) 3000 UNIT IV (11:15)
[2025-04-02] MEDS: LIDOCAINE 1% 10ML MDV 10 ML IJ (11:15)
[2025-04-02] MEDS: 0.9 % SODIUM CHLORIDE 500 ML 25 ML IV (11:16)
[2025-04-02] MEDS: MIDAZOLAM HCL 1MG/ML 5ML VIAL 1 MG IV (11:44)
[2025-04-02] MEDS: FENTANYL 100MCG/2ML VIAL 50 MCG IV (11:44)
[2025-04-02] MEDS: IOPAMIDOL-370 (76%);100ML BOTTLE 50 ML IV (13:44)
== END 2025-04-02 15:00 | disposition home or self-care (01) ==
LOC: CATHLAB 09:44
PROVIDERS: PCP Internal Medicine; Visit Provider Internal Medicine
PROC: 4A023N7 Measurement of Cardiac Sampling and Pressure, Left Heart, Percutaneous Approach (ICD-10-PCS; CPT 93452; principal; 2025-04-02 10:45)
DX: I25.119 Atherosclerotic heart disease of native coronary artery with unspecified angina pectoris (principal); R94.31 Abnormal electrocardiogram [ECG] [EKG]; R94.39 Abnormal result of other cardiovascular function study; E11.9 Type 2 diabetes mellitus without complications; I10 Essential (primary) hypertension; R55 Syncope and collapse; I82.A11 Acute embolism and thrombosis of right axillary vein; I25.2 Old myocardial infarction; Z79.01 Long term (current) use of anticoagulants; Z79.84 Long term (current) use of oral hypoglycemic drugs; Z79.899 Other long term (current) drug therapy; Z82.49 Family history of ischemic heart disease and other diseases of the circulatory system; Z82.3 Family history of stroke
CPT/HCPCS: 80048; 85025; 93458; 99152; C1725; C1769; J1200; J1644; J3010; J7040; Q9967

== ENCOUNTER 2025-04-10 15:28 | Outpatient (CLI) | payer MEDICAID, SELFPAY ==
--- OUTSIDE RECORDS SUMMARY | 2025-03-04 14:20 | XMS_ITS | Encounter Summary ---
Author Organization Healthcare Address [address] [place] [address] Care Team Providers Care International Editorial Producer Name Role Phone Rupal Levineew Chary DO Primary Care Provider [phone] Reason for Referral * Imaging (Routine) - Pending Review Specialty Diagnoses / Procedures Referred By Sia t Referred To Contact Cardiology Diagnoses Acute embolism and thrombosis of right axillary vein (CMS/HCC) Procedures VAS US Venous Duplex Upper Extremity Unilateral Right Berto Goodson MD [address] [facility] [address] [place] [address] Phone: tel: fax: Referral ID Status Reason Start Date Expiration Date Visits Requested Visits Authorized [id number] Pending Review Perform Procedure 03/04/2025 09/03/2026 1 1 Reason for Visit * Reason Comments Paget-Schroetter syndrome * Consultation (Urgent) - Closed Specialty Diagnoses / Procedures Referred By Contact Referred To Contact Vascular Surgery / [facility] Diagnoses Paget-Schroetter syndrome Adolph Camp MD [address] [facility] [address] [place] [address] Phone: tel:[phone] fax:[phone] [facility] [address] [facility] 5th Floor [address] [place] [address] Phone: tel: fax: Referral ID Status Reason Start Date Expiration Date V isits Requested Visits Authorized [id number] Closed Specialty Services Required 02/08/2025 08/10/2026 1 1 Encounter Details Date Type Department Care Team (Latest Contact Info) Description 03/04/2025 2:20 PM EDT Office Visit [facility] [address] 5th Floor [address] [place] [address] Berto Goodson MD [address] [facility] [address] [place] [address] Acute embolism and thrombosis of [...] embolism and thrombosis of right axillary vein ([facility]) 03/04/2025 The following portions of the chart [...] Info) Description 05/22/2025 12:00 PM EST Appointment [facility] [address] [place] [address] 05/22/2025 12:40 PM EST Office Visit [facility] [address] [place] [address] Berto Goodson MD [address] [facility] [address] [place] [address] Scheduled Orders Name Type Priority Associated Diagnoses [...] documented as of this encounter Care Teams International Editorial Producer Relationship Specialty Start Date End Date Adolph Levine DO [address] [place] [address] [place] [address] PCP - General 03/04/25 documented as of this encounter
--- OUTSIDE RECORDS SUMMARY | 2025-04-10 15:31 | XMS_ITS | Encounter Summary ---
Author Organization Healthcare Address [address] [place] [address] Care Team Providers Care Wet Mix Operator Name Role Phone Adolph Levine DO Primary Care Provider [phone] Encounter Details Date Type Department Care Team (Late st Contact Info) Description 01/31/2025 Orders Only External Location [address] [place] [address] Jahaira Golden, DO [address] [place] [address] Social History Tobacco Use Types [...] Info) Description 05/22/2025 12:00 PM EST Appointment [facility] [address] [place] [address] 05/22/2025 12:40 PM EST Office Visit [facility] [address] [place] [address] Berto Goodson MD [address] [facility] [address] [place] [address] documented as of this encounter Procedures Procedure Name Priority Date/Time Associated Diagnosis Comments US OUTSIDE IMAGES 01/31/2025 3:31 PM EDT documented in this encounter Results * US OUTSIDE IMAGES (01/31/2025 3:31 PM EDT) Anatomical Region Laterality Modality Ultrasound 01/31/2025 3:31 PM EDT us Jahaira N [place] IMG US PROCEDURES Final Result documented in this encounter Visit Diagnoses Not on filedocumented in this encounter Care Teams Wet Mix Operator Relationship Specialty Start Date End Date Adolph Levine DO [address] [facility] [address] [place] [address] PCP - General 03/04/25 documented as of this encounter
--- OUTSIDE RECORDS SUMMARY | 2025-04-10 15:31 | XMS_ITS | Encounter Summary ---
Author Organization Healthcare Address [address] [place] [address] Care Team Providers Care Groundhand Name Role Phone Unavailable Primary Care Provider Unavailabl e Encounter Details Date Type Department Care Team (Late st Contact Info) Description 02/08/2025 Orders Only External Location [address] [place] [address] Provider, External Social History Tobacco Use Types [...] Info) Description 05/22/2025 12:00 PM EST Appointment [facility] [address] [place] [address] [address] [place] [address] 05/22/2025 12:40 PM EST Office Visit [facility] [address] [place] [address], [address] [place] [address] Berto Goodson MD [address] [place], [place] [address] [place] [address] documented as of this encounter Procedures Procedure [...]
--- OUTSIDE RECORDS SUMMARY | 2025-04-10 15:31 | XMS_ITS | Clinical Summary ---
Author Organization Healthcare Address [address] [place] [address] Care Team Providers Care Title I Coordinator Name Role Phone Adolph Levine DO Primary Care Provider [phone] Allergies No known active allergies Medications Eliquis [...] Type Department Care Team Description 03/07/2025 Telephone [facility] [place] 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 [place] [address] Tita Foster 02/08/2025 Orders Only External Location [address] [place] [address] Provider, External 02/07/2025 Orders Only [facility] [place] [facility] [address] 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 Orders Only External Location [address] [place] [address] Provider, External 01/31/2025 Orders Only External Location [address] [place] [address] Jahaira Golden, 01/31/2025 Orders Only External Location [address] [place] [address] Jahaira Golden, DO from Last [...] 03/04/2025 1:56 PM EDT Plan of Treatment Upcoming Encounters Date Type Department Care Team (Late st Contact Info) Description 05/22/2025 12:00 PM EST Appointment [facility] [address] [facility] 5th Floor [address] [place] [address] 05/22/2025 12:40 PM EST Office Visit [facility] [address] [facility] 5th Floor [address] [place] [address] Berto Goodson MD [address] [facility] [address] [place] [address] Health Maintenance Due Date Last [...] 02/16/2021 Sigmoidoscopy 02/16/2021 [facility]-Colorectal Cancer Screening 02/16/2021 BCI-BGSIP-25 Vaccine (1 - 20 24-25 season) 2025 [facility]-Influenza Vaccine (#1) 2025 [facility]-Zoster Vaccines (1 of 2) 02/16/2026 [facility]-Obesity Intervention Completed 03/04/2025 HPV Vaccines Aged Out No longer eligi [...] Final Result from Last 3 Months Insurance [facility] MEDICAID Care Teams Title I Coordinator Relationship Specialty Start Date End Date Adolph Levine DO [address] [place] [address] [place] [address] PCP - General 03/04/25
--- OUTSIDE RECORDS SUMMARY | 2025-04-10 15:31 | XMS_ITS | Encounter Summary ---
Author Organization Healthcare Address [address] [place] [address] Care Team Providers Care Russian Teacher Name Role Phone Adolph Levine DO Primary Care Provider [phone] Encounter Details Date Type Department Care Team (Late st Contact Info) Description 01/31/2025 Orders Only External Location [address] [place] [address] Jahaira Golden, DO [address] [place] [address] Social History Tobacco Use Types [...] Info) Description 05/22/2025 12:00 PM EST Appointment [facility] Lab [address] [place] [address] 05/22/2025 12:40 PM EST Office Visit [facility] [address] [place] [address] Berto Goodson MD [address] [facility] [address] [place] [address] documented as of this encounter [...] on filedocumented in this encounter Care Teams Russian Teacher Relationship Specialty Start Date End Date Adolph Levine DO [address] [place] [address] [place] [address] PCP - General 03/04/25 documented as of this encounter
--- OUTSIDE RECORDS SUMMARY | 2025-04-10 15:31 | XMS_ITS | Encounter Summary ---
Author Organization Healthcare Address [address] [place] [address] Care Team Providers Care Leather Production Worker Name Role Phone Adolph Levine DO Primary Care Provider [phone] Encounter Details Date Type Department Care Team (Late st Contact Info) Description 03/07/2025 Telephone [facility] [place] [facility] [address] [place] [address] [place] [address] Social History Tobacco Use Types Packs/Day Years [...] to ensure continuum of care. Tita Foster [facility] Nurse Liaison [phone] documented in this encounter Plan of Treatment Upcoming Encounters Date Type Department Care Team (Late st Contact Info) Description 05/22/2025 12:[address] [facility] Lab [address] [facility] 5th Floor [address] [place] [address] 05/22/2025 12:40 PM EST Office Visit [facility] [address] [facility] 5th Floor [address] [place] [address] Berto Goodson MD [address] [place] [address] documented as of this encounter Visit Diagnoses Not on filedocumented in this encounter Additional Health Concerns Assessment Noted Time A fall risk assessment has been complete d for the patient 03/04/2025 2:03 PM EDT A Body Mass Index follow-up plan has been documented for the patient 03/27/2025 10:13 AM EDT documented as of this encounter Care Teams Leather Production Worker Relationship Specialty Start Date End Date Adolph Levine DO [address] [place] [address] PCP - General 03/04/25 documented as of this encounter
--- OUTSIDE RECORDS SUMMARY | 2025-04-10 15:31 | XMS_ITS | Encounter Summary ---
Author Organization Healthcare Address [address] [place] [address] Care Team Providers Care Sporting Goods Sales Associate Name Role Phone Adolph Levine DO Primary Care Provider [phone] Encounter Details Date Type Department Care Team (Late st Contact Info) Description 01/31/2025 Orders Only External Location [address] [place] [address] Provider, External Social History Tobacco Use Types [...] Info) Description 05/22/2025 12:00 PM EST Appointment [facility] Lab [address] [place] [address] 05/22/2025 12:40 PM EST Office Visit [facility] [address] [place] [address] Berto Goodson MD [address] [facility] [address] [place] [address] documented as of this encounter Procedures Procedure [...] on filedocumented in this encounter Care Teams Sporting Goods Sales Associate Relationship Specialty Start Date End Date Adolph Levine DO [address] [place] [address] PCP - General 03/04/25 documented as of this encounter
--- OUTSIDE RECORDS SUMMARY | 2025-04-10 15:31 | XMS_ITS | Encounter Summary ---
Author Organization Healthcare Address [address] [place] [address] Care Team Providers Care Cashier Name Role Phone Adolph Levine DO Primary Care Provider [phone] Encounter Details Date Type Department Care Team [...] Info) Description 05/22/2025 12:00 PM EST Appointment [facility] [address] [place] [address] 05/22/2025 12:40 PM EST Office Visit [facility] [address] [place] [address] Berto Goodson MD [address] [facility] [address] [place] [address] documented as of this encounter Visit Diagnoses Not on filedocumented in this encounter Additional Health Concerns Assessment Noted Time A fall risk assessment has been complete d for the patient 03/04/2025 2:03 PM EDT A Body Mass Index follow-up plan has been documented for the patient 03/27/2025 10:13 AM EDT documented as of this encounter Care Teams Cashier Relationship Specialty Start Date End Date Adolph Levine DO [address] [place] [address] PCP - General 03/04/25 documented as of this encounter
--- OUTSIDE RECORDS SUMMARY | 2025-04-10 15:31 | XMS_ITS | Encounter Summary ---
Author Organization [facility] Address [address] [place] [address] Care Team Providers Care Stained Glass Joiner Name Role Phone Unavailable Primary Care Provider Unavailabl e Encounter Details Date Type Department Care Team (Late st Contact Info) Description 02/26/2025 Telephone [facility] [place] [facility] [address] [place] [address] [place] [address] Social History Tobacco Use Types Packs/Day Years [...] up with patient after appointment. Tita Foster [facility] Nurse Liaison [phone] documented in this encounter Plan of Treatment Upcoming Encounters Date Type Department Care Team (Late st Contact Info) Description 05/22/2025 12:[address] [facility] Lab [address] 5th [address] [place] [address] 05/22/2025 12:40 PM EST Office Visit [facility] [address] [facility] 5th Floor [address] [place] [address] Berto Goodson MD [address] [facility] [address] [place] [address] documented as of this encounter Visit Diagnoses Not on filedocumented in this encounter
--- NOTE | 2025-04-10 15:37 | XR_ITS ---
FINAL REPORT CLINICAL HISTORY: pain that radiates from low back to pelvis down legs FINDINGS: SINGLE VIEW PELVIS: A single view of the pelvis was obtained. There is no prior exam for comparison. There is no acute fracture or dislocation. There is mild degenerative disease of the hips. Soft tissues are unremarkable. IMPRESSION: Mild degenerative change without acute osseous abnormality. Reviewed, Interpreted and Dictated by Manjula Carty MD Transcribed by Joseline Cooper Authenticated and [facility]
--- NOTE | 2025-04-10 15:37 | XR_ITS ---
FINAL REPORT CLINICAL HISTORY: Lumbar pain that radiates down the legs FINDINGS: AP and lateral views of the lumbar spine were obtained. There is no prior exam for comparison. There is no acute fracture or malalignment. There is very mild degenerative disc disease. Disc space height is preserved. Small osteophytes are noted at multiple levels. No acute paraspinal abnormality. 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 Reviewed, Interpreted and Dictated by Manjula Carty MD Transcribed by Joseline Cooper Authenticated and [facility]
--- NOTE | 2025-04-10 15:37 | XR_ITS ---
FINAL REPORT CLINICAL HISTORY: CHRONIC BILATERAL SHOULDER PAIN FINDINGS: Three views of the right shoulder were obtained. There is no prior exam for comparison. There is no fracture or dislocation. Mild degenerative joint disease is noted. Soft tissues are unremarkable. IMPRESSION: Mild degenerative change without acute osseous abnormality of the right shoulder. Reviewed, Interpreted and Dictated by Manjula Carty MD Transcribed by Joseline Cooper Authenticated and [facility]
--- NOTE | 2025-04-10 15:37 | XR_ITS ---
FINAL REPORT CLINICAL HISTORY: CHRONIC BILATERAL SHOULDER PAIN FINDINGS: Three views of the left shoulder were obtained. There is no prior exam for comparison. There is no fracture or dislocation. The joint space is preserved. Soft tissues are unremarkable. IMPRESSION: No acute osseous abnormality of the left shoulder. Reviewed, Interpreted and Dictated by Manjula Carty MD Transcribed by Joseline Cooper Authenticated and [facility]
== END 2025-04-10 23:59 | disposition home or self-care (01) ==
LOC: RAD 15:29
PROVIDERS: PCP Internal Medicine; Visit Provider Internal Medicine
DX: M16.0 Bilateral primary osteoarthritis of hip (principal); M51.369 Other intervertebral disc degeneration, lumbar region without mention of lumbar back pain or lower extremity pain; M19.011 Primary osteoarthritis, right shoulder
CPT/HCPCS: 72100; 72170; 73030

== ENCOUNTER 2025-04-18 16:14 | Emergency (ER) | payer MEDICAID, SELFPAY ==
--- OUTSIDE RECORDS SUMMARY | 2025-03-04 14:20 | XMS_ITS | Encounter Summary ---
Author Organization Healthcare Address [address] [place] [address] Care Team Providers Care Field Pipelines Supervisor Name Role Phone Rupal Levineew Chary DO Primary Care Provider [phone] Reason for Referral * Imaging (Routine) - Pending Review Specialty Diagnoses / Procedures Referred By Sia t Referred To Contact Cardiology Diagnoses Acute embolism and thrombosis of right axillary vein (CMS/HCC) Procedures VAS US Venous Duplex Upper Extremity Unilateral Right Berto Goodson MD [address] [facility] [address] [place] [address] Phone: tel: fax: Referral ID Status Reason Start Date Expiration Date Visits Requested Visits Authorized [id number] Pending Review Perform Procedure 03/04/2025 09/03/2026 1 1 Reason for Visit * Reason Comments Paget-Schroetter syndrome * Consultation (Urgent) - Closed Specialty Diagnoses / Procedures Referred By Contact Referred To Contact Vascular Surgery / [facility] Diagnoses Paget-Schroetter syndrome Adolph Camp MD [address] [facility] [address] [place] [address] Phone: tel:[phone] fax:[phone] [facility] [address] [facility] 5th Floor [address] [place] [address] Phone: tel: fax: Referral ID Status Reason Start Date Expiration Date V isits Requested Visits Authorized [id number] Closed Specialty Services Required 02/08/2025 08/10/2026 1 1 Encounter Details Date Type Department Care Team (Latest Contact Info) Description 03/04/2025 2:20 PM EDT Office Visit [facility] [address] [place] [address] Berto Goodson MD [address] [facility] [address] [place] [address] Acute embolism and thrombosis of right axillary vein (CMS/HCC) (Primary Dx) Social History Tobacco Use Types Packs/Day Years Used Date Smoking Tobacco: Never Passive Smoke Exposure: Never Smokeless Tobacco: Never Tobacco Cessation:Counseling Given: Not Answered AUDIT-C Answer Date Recorded Frequency of Alcohol Consumption Not on file 03/04/2025 Q2: How many drinks containi ng alcohol do you have on a typical day when you are drinking? Patient does not drink Frequency of Binge Drinking Not on file 02/15 Sex and Gender Information Value Date Recorded Sex Assigned at Not on file Legal Sex Male 6:57 PM EDT Gender Identity Not on file Sexual Orientation Not on file documented as of this encounter Last Filed Vital Signs Vital Sign Reading Time Taken Comments Blood Pressure 125/84 03/04/2025 2:04 PM EDT Pulse 74 03/04/2025 1:56 PM EDT Temperature 36.5 C (97.7 F) 03/04/2025 1:56 PM EDT Respiratory Rate - - Oxygen Saturation 99% 03/04/2025 1:56 PM EDT Inhaled Oxygen Concentration - - Weight 85.6 kg (188 lb 11.4 oz) 03/04/2025 1:56 PM EDT Height 170.2 cm (5' 7 ) 03/04/2025 1:56 PM EDT Body Mass Index 29.56 03/04/2025 1:56 PM EDT documented in this encounter Functional Status documented as of this encounter Miscellaneous Notes * Progress Notes - Mustapha Dougherty MD - 03/04/2025 2:20 PM EDT Dear Adolph Levine, DO, HPI 50-year-old gentleman seen as a new clinic patient for evaluation of 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 In early January of this year, patient was found to have an occlusive right axillary deep venous thrombosis after a period of time pressure washing with prolonged shoulder abduction. He was placed on Eliquis in went for percutaneous suction thrombectomy an outside facility on 02/08/2025. There was minimal thrombus extracted, but patient had evidence of compression in the thoracic outlet and multiple venous collaterals seen. Since his surgery he is maintained on Eliquis. Hisright upper extremity swelling has significantly decreased and is almost back to his baseline. No history of trauma to area. No evidence of cervical rib. Vascular Surgery History: 02/08/2025 - right axillary vein percutaneous thrombectomy I personally and independently reviewed and interpreted the Vascular Lab Images, CT Images, and Diagnostic XR Images from today's visit which showed: All studies reviewed His chronic comorbid conditions that impact our treatment planning include: I reviewed the following co-morbidities which are stable and controlled: Patient Active Problem List Diagnosis Date Noted Acute embolism and thrombosis of right axillary vein ([facility]) 03/04/2025 The following portions of the chart were reviewed this encounter and updated as appropriate: Tobacco Allergies Meds Problems Med Hx Surg Hx Fam Hx Subjective Review of Systems Constitutional: Negative for chills, fatigue, fever and unexpected weight change. HENT: Negative for congestion and facial swelling. Eyes: Negative for discharge and itching. Respiratory: Negative for cough and shortness of breath. Cardiovascular: Negative for chest pain and leg swelling. Right upper extremity arm swelling Gastrointestinal: Negative for abdominal pain and blood in stool. Endocrine: Negative for polydipsia and polyphagia. Genitourinary: Negative for difficulty urinating and dysuria. Musculoskeletal: Negative for arthralgias, back pain and myalgias. Skin: Negative for rash and wound. Allergic/Immunologic: Negative for environmental allergies and food allergies. Neurological: Negative for syncope, speech difficulty, weakness and numbness. Hematological: Negative for adenopathy. Does not bruise/bleed easily. Psychiatric/Behavioral: Negative for agitation and behavioral problems. Objective Physical Exam Right upper extremity: No significant swelling compared to the left upper extremity. 1+ radial/ulnar pulse. Evidence of dilated forearm and arm veins Negative upper extremity stress test Assessment/Plan In Summary: Delbert Lazo is a 50 y.o. year old male who we saw today in clinic. I discussed the test interpretations and management with associated orders of the following medical conditions of: Problem List Items Addressed This Visit Acute embolism and thrombosis of right axillary vein (CMS/HCC) - Primary Relevant Medications Eliquis 5 MG tablet Other Relevant Orders VAS US Venous Duplex Upper Extremity Unilateral Right We will see him back for: Follow up in 3 months (on 06/04/2025). Patient should continue aspirin and Eliquis Patient likely has Nupur Munoz. His right upper extremity symptoms have almost completely resolved pointing to continued patency of his right upper extremity venous system. We will see him back in 3 months with a venous duplex ultrasound of the right upper extremity Mustapha Dougherty MD Cosigned by Berto Goodson MD at 03/27/2025 10:13 AM EDT Associated attestation - Berto Goodson MD - 03/27/2025 10:13 AM EDT I saw and evaluated the patient with the resident/fellow. I discussed the case with the resident/fellow and agree with the findings and plan as documented. documented in this encounter Plan of Treatment Upcoming Encounters Date Type Department Care Team (Late st Contact Info) Description 05/22/2025 12:00 PM EST Appointment [facility] [address] [place] [address] 05/22/2025 12:40 PM EST Office Visit [facility] [address] [place] [address] Berto Goodson MD [address] [facility] [address] [place] [address] Scheduled Orders Name Type Priority Associated Diagnoses Order Schedule VAS US Venous Duplex Upper Extremity Unilateral Right Vascular Ultrasound Routine Acute embolism and thrombosis of right axillary vein (CMS/HCC) 1 Occurrences starting 03/04/2025 until 09/04/2026 documented as of this encounter Visit Diagnoses Diagnosis Acute embolism and thrombosis of right axillary vein (CMS/HCC)- Primary documented in this encounter Additional Health Concerns Assessment Noted Time A fall risk assessment has been complete d for the patient 03/04/2025 2:03 PM EDT A Body Mass Index follow-up plan has been documented for the patient 03/27/2025 10:13 AM EDT documented as of this encounter Care Teams Field Pipelines Supervisor Relationship Specialty Start Date End Date Adolph Levine DO [address] [place] [address] [place] [address] PCP - General 03/04/25 documented as of this encounter
[2025-04-18] VITALS (14 sets, daily range): BP systolic 107–141; BP diastolic 63–83; PULSE 55–75; RESP 13–19; TEMP 36.6–37; O2SAT 97–100; BMI 29.1
--- NOTE | 2025-04-18 16:16 | ECG_ITS ---
APPROVED REPORT Exam: Resting ECG HR:61 bpm ECG Measurements Heart Rate 61 AXES HI 137 P 63 QRSd 116 QRS 21 QT 395 T 38 QTc 398 Conclusion SINUS RHYTHM INCOMPLETE RIGHT BUNDLE BRANCH BLOCK [90+ ms QRS DURATION, TERMINAL R IN V1/V2, 40+ ms S IN I/aVL/V4/V5/V6] NONSPECIFIC T-WAVE ABNORMALITY BORDERLINE ECG UNCONFIRMED REPORT Electronically signed by : DAVE DUNNE, 04/18/2025 23:05:14
--- OUTSIDE RECORDS SUMMARY | 2025-04-18 16:19 | XMS_ITS | Encounter Summary ---
Author Organization [facility] Address [address] [place] [address] Care Team Providers Care Air Brake Mechanic Name Role Phone Unavailable Primary Care Provider Unavailabl e Encounter Details Date Type Department Care Team (Late st Contact Info) Description 02/26/2025 Telephone [facility] [place] Aureliano [address] [place] [address] [place] [address] Social History Tobacco Use Types Packs/Day Years [...] up with patient after appointment. Tita Foster [facility] Nurse Liaison [phone] documented in this encounter Plan of Treatment Upcoming Encounters Date Type Department Care Team (Late st Contact Info) Description 05/22/2025 12:00 PM EST Appointment [facility] [address] 5th Floor [address] [place] [address] 05/22/2025 12:40 PM EST Office Visit [facility] [address] [facility] 5th Floor [address] [place] [address] Berto Goodson MD [address] [facility] [address] [place] [address] documented as of this encounter Visit Diagnoses Not on filedocumented in this encounter
--- OUTSIDE RECORDS SUMMARY | 2025-04-18 16:19 | XMS_ITS | Encounter Summary ---
Author Organization Healthcare Address [address] [place] [address] Care Team Providers Care Cut Off Man Name Role Phone Adolph Levine DO Primary Care Provider [phone] Encounter Details Date Type Department Care Team (Late st Contact Info) Description 01/31/2025 Orders Only External Location [address] [place] [address] Provider, External Social History Tobacco Use Types [...] Info) Description 05/22/2025 12:00 PM EST Appointment [facility] [address] [place] [address] 05/22/2025 12:40 PM EST Office Visit [facility] [address] [place] [address] Berto Goodson MD [address] [facility] [address] [place] [address] documented as of this encounter Procedures Procedure [...] on filedocumented in this encounter Care Teams Cut Off Man Relationship Specialty Start Date End Date Adolph Levine DO [address] [place] [address] [place] [address] PCP - General 03/04/25 documented as of this encounter
--- OUTSIDE RECORDS SUMMARY | 2025-04-18 16:19 | XMS_ITS | Encounter Summary ---
Author Organization [facility] Address [address] [place] [address] Care Team Providers Care Magazine Hand Name Role Phone Adolph Levine DO Primary Care Provider [phone] Encounter Details Date Type Department Care Team (Late st Contact Info) Description 01/31/2025 Orders Only External Location [address] [place] [address] Jahaira Golden, DO [address] [place] [address] Social History Tobacco Use Types [...] Info) Description 05/22/2025 12:00 PM EST Appointment [facility] [address] [place] [address] 05/22/2025 12:40 PM EST Office Visit [facility] [address] [place] [address] Berto Goodson MD [address] [facility] [address] [place] [address] documented as of this encounter [...] on filedocumented in this encounter Care Teams Magazine Hand Relationship Specialty Start Date End Date Adolph Levine DO [address] [place] [address] [place] [address] PCP - General 03/04/25 documented as of this encounter
--- OUTSIDE RECORDS SUMMARY | 2025-04-18 16:20 | XMS_ITS | Encounter Summary ---
Author Organization [facility] Address [address] [place] [address] Care Team Providers Care Pipeline Welder Name Role Phone Adolph Levine DO Primary Care Provider [phone] Encounter Details Date Type Department Care Team (Late st Contact Info) Description 03/07/2025 Telephone [facility] [place] Aureliano [address] [place] [address] [place] [address] Social History Tobacco Use Types Packs/Day Years [...] to ensure continuum of care. Tita Foster [facility] Nurse Liaison [phone] documented in this encounter Plan of Treatment Upcoming Encounters Date Type Department Care Team (Late st Contact Info) Description 05/22/2025 12:00 PM EST Appointment [facility] [address] [facility] 5th Floor [address] [place] [address] 05/22/2025 12:40 PM EST Office Visit [facility] [address] [facility] 5th Floor [address] [place] [address] Berto Goodson MD [address] [place] [address] documented as of this encounter Visit Diagnoses Not on filedocumented in this encounter Additional Health Concerns Assessment Noted Time A fall risk assessment has been complete d for the patient 03/04/2025 2:03 PM EDT A Body Mass Index follow-up plan has been documented for the patient 03/27/2025 10:13 AM EDT documented as of this encounter Care Teams Pipeline Welder Relationship Specialty Start Date End Date Adolph Levine DO [address] [place] [address] [place] [address] PCP - General 03/04/25 documented as of this encounter
--- OUTSIDE RECORDS SUMMARY | 2025-04-18 16:20 | XMS_ITS | Clinical Summary ---
Author Organization Healthcare Address [address] [place] [address] Care Team Providers Care User Support Analyst Supervisor Name Role Phone Adolph Levine DO Primary Care Provider [phone] Allergies No known active allergies Medications Eliquis [...] Type Department Care Team Description 03/07/2025 Telephone [facility] [place] 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 [place] [address] Tita Foster 02/08/2025 Orders Only External Location [address] [place] [address] Provider, External 02/07/2025 Orders Only [facility] [place] Aureliano [address] 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 Orders Only External Location [address] [place] [address] Provider, External 01/31/2025 Orders Only External Location [address] [place] [address] Jahaira Golden, 01/31/2025 Orders Only External Location [address] [place] [address] Jahaira Golden, DO from Last [...] Info) Description 05/22/2025 12:00 PM EST Appointment [facility] [address] [facility] 5th Floor [address] [place] [address] 05/22/2025 12:40 PM EST Office Visit [facility] [address] [facility] 5th Floor [address] [place] [address] Berto Goodson MD [address] [facility] [address] [place] [address] Health Maintenance Due Date Last [...] 02/16/2021 Sigmoidoscopy 02/16/2021 [facility]-Colorectal Cancer Screening 02/16/2021 [id number] Vaccine (1 - 20 24-25 season) 2025 [...] Final Result from Last 3 Months Insurance [facility] MEDICAID Care Teams User Support Analyst Supervisor Relationship Specialty Start Date End Date Adolph Levine DO [address] [place] [address] [place] [address] PCP - General 03/04/25
--- OUTSIDE RECORDS SUMMARY | 2025-04-18 16:20 | XMS_ITS | Encounter Summary ---
Author Organization Healthcare Address [address] [place] [address] Care Team Providers Care Compliance Lead Name Role Phone Adolph Levine DO Primary Care Provider [phone] Encounter Details Date Type Department Care Team [...] Info) Description 05/22/2025 12:00 PM EST Appointment [facility] [address] [place] [address] 05/22/2025 12:40 PM EST Office Visit [facility] [address] [place] [address] Berto Goodson MD [address] [facility] [address] [place] [address] documented as of this encounter Visit Diagnoses Not on filedocumented in this encounter Additional Health Concerns Assessment Noted Time A fall risk assessment has been complete d for the patient 03/04/2025 2:03 PM EDT A Body Mass Index follow-up plan has been documented for the patient 03/27/2025 10:13 AM EDT documented as of this encounter Care Teams Compliance Lead Relationship Specialty Start Date End Date Adolph Levine DO [address] [place] [address] [place] [address] PCP - General 03/04/25 documented as of this encounter
--- OUTSIDE RECORDS SUMMARY | 2025-04-18 16:20 | XMS_ITS | Encounter Summary ---
Author Organization Healthcare Address [address] [place] [address] Care Team Providers Care Telecommunications Network Planner Name Role Phone Adolph Levine DO Primary Care Provider [phone] Encounter Details Date Type Department Care Team (Late st Contact Info) Description 01/31/2025 Orders Only External Location [address] [place] [address] Jahaira Golden, DO [address] [place] [address] Social History Tobacco Use Types [...] Info) Description 05/22/2025 12:00 PM EST Appointment [facility] [address] [place] [address] 05/22/2025 12:40 PM EST Office Visit [facility] [address] [place] [address] Berto Goodson MD [address] [facility] [address] [place] [address] documented as of this encounter [...] on filedocumented in this encounter Care Teams Telecommunications Network Planner Relationship Specialty Start Date End Date Adolph Levine DO [address] [facility] [address] [place] [address] PCP - General 03/04/25 documented as of this encounter
--- NOTE | 2025-04-18 16:45 | CT_ITS ---
PROCEDURE INFORMATION: Exam: CT Head Without Contrast Exam date and time: 04/18/2025 5:27 PM Age: 50 years old Clinical indication: Other: Lightheadedness TECHNIQUE: Imaging protocol: Computed tomography of the head without contrast. Radiation optimization: All CT scans at this facility use at least one of these dose optimization techniques: automated exposure control; mA and/or kV adjustment per patient size (includes targeted exams where dose is matched to clinical indication); or iterative reconstruction. COMPARISON: MR BRACHIAL PLEXUS BI WO CON 02/27/2025 4:00 PM FINDINGS: Brain: Normal. No hemorrhage. Unremarkable white matter. No mass effect. Cerebral ventricles: No ventriculomegaly. Paranasal sinuses: Visualized sinuses are unremarkable. No fluid levels. Mastoid air cells: Visualized mastoid air cells are well aerated. Bones: Unremarkable. No acute fracture. Soft tissues: Unremarkable. IMPRESSION: No acute intracranial abnormality.
--- NOTE | 2025-04-18 16:45 | XR_ITS ---
PROCEDURE INFORMATION: Exam: XR Chest Exam date and time: 04/18/2025 5:10 PM Age: 50 years old Clinical indication: Shortness of breath TECHNIQUE: Imaging protocol: Radiologic exam of the chest. Views: 2 views. COMPARISON: CR XR SHOULDER LT MIN 2V 04/10/2025 3:45 PM FINDINGS: Lungs: Unremarkable. No consolidation. Pleural spaces: Unremarkable. No pleural effusion. No pneumothorax. Heart/Mediastinum: Unremarkable. No cardiomegaly. Bones/joints: Unremarkable. IMPRESSION: No acute findings.
--- NOTE | 2025-04-18 16:45 | CT_ITS ---
PROCEDURE INFORMATION: Exam: CTA Head With Contrast, Arteriography Exam date and time: 04/18/2025 5:29 PM Age: 50 years old Clinical indication: Vertigo; Additional info: Lightheadedness TECHNIQUE: Imaging protocol: Computed tomographic angiography of the head with contrast. Exam focused on the arteries. 3D rendering (Not supervised by radiologist): MIP and/or 3D reconstructed images were created by the technologist. Radiation optimization: All CT scans at this facility use at least one of these dose optimization techniques: automated exposure control; mA and/or kV adjustment per patient size (includes targeted exams where dose is matched to clinical indication); or iterative reconstruction. Contrast material: ISO 370; Contrast volume: 80 ml; Contrast route: INTRAVENOUS (IV); COMPARISON: CT HEAD/BRAIN WO CON 04/18/2025 5:27 PM FINDINGS: ANTERIOR CIRCULATION: Right internal carotid artery: Intracranial segment is patent with no significant stenosis. No aneurysm. Right middle cerebral artery: No occlusion or significant stenosis. No aneurysm. Right anterior cerebral artery: No occlusion or significant stenosis. No aneurysm. Left internal carotid artery: Intracranial segment is patent with no significant stenosis. No aneurysm. Left middle cerebral artery: No occlusion or significant stenosis. No aneurysm. Left anterior cerebral artery: No occlusion or significant stenosis. No aneurysm. POSTERIOR CIRCULATION: Right vertebral artery: No occlusion or significant stenosis. No aneurysm. Left vertebral artery: No occlusion or significant stenosis. No aneurysm. Basilar artery: No occlusion or significant stenosis. No aneurysm. Right posterior cerebral artery: No occlusion or significant stenosis. No aneurysm. Left posterior cerebral artery: No occlusion or significant stenosis. No aneurysm. IMPRESSION: No hemodynamically significant stenosis or large vessel occlusion.
--- NOTE | 2025-04-18 16:45 | CT_ITS ---
PROCEDURE INFORMATION: Exam: CTA Neck With Contrast Exam date and time: 04/18/2025 5:29 PM Age: 50 years old Clinical indication: Vertigo; Additional info: Lightheadedness TECHNIQUE: Imaging protocol: Computed tomographic angiography of the neck with contrast. Exam focused on the cervical segments of the vasculature. 3D rendering (Not supervised by radiologist): MIP and/or 3D reconstructed images were created by the technologist. Radiation optimization: All CT scans at this facility use at least one of these dose optimization techniques: automated exposure control; mA and/or kV adjustment per patient size (includes targeted exams where dose is matched to clinical indication); or iterative reconstruction. Contrast material: ISO; Contrast volume: 370 ml; Contrast route: INTRAVENOUS (IV); COMPARISON: MR BRACHIAL PLEXUS BI WO CON 02/27/2025 4:00 PM FINDINGS: Right common carotid artery: Minimal calcification at the right common carotid bifurcation without stenosis. Right internal carotid artery: No stenosis of the extracranial segment. No dissection or occlusion. Right external carotid artery: No occlusion or stenosis of the origin. Left common carotid artery: No stenosis. No dissection or occlusion. Left internal carotid artery: No stenosis of the extracranial segment. No dissection or occlusion. Left external carotid artery: No occlusion or stenosis of the origin. Right vertebral artery: No stenosis. No dissection or occlusion. Left vertebral artery: No stenosis. No dissection or occlusion. Soft tissues: Normal. No significant soft tissue swelling. Bones/joints: No acute fracture. IMPRESSION: No stenosis or dissection. REFERENCES: NASCET CRITERIA. The degree of stenosis in the cervical segment of the internal carotid artery is based on NASCET criteria. Normal is no stenosis. Mild is less than 50% stenosis. Moderate is 50-69% stenosis. Severe is 70% to 99% stenosis. Total occlusion is no detectable patent lumen.
--- NOTE | 2025-04-18 16:45 | CT_ITS ---
PROCEDURE INFORMATION: Exam: CTA Chest With Contrast Exam date and time: 04/18/2025 5:33 PM Age: 50 years old Clinical indication: Shortness of breath; Additional info: Shortness of breath, HX of ue dvt TECHNIQUE: Imaging protocol: Computed tomographic angiography of the chest with contrast. Exam focused on the arteries. 3D rendering (Not supervised by radiologist): MIP and/or 3D reconstructed images were created by the technologist. Radiation optimization: All CT scans at this facility use at least one of these dose optimization techniques: automated exposure control; mA and/or kV adjustment per patient size (includes targeted exams where dose is matched to clinical indication); or iterative reconstruction. Contrast material: ISO 370; Contrast volume: 80 ml; Contrast route: INTRAVENOUS (IV); COMPARISON: CT ANGIO CHEST PE PROTOCOL 01/31/2025 4:18 PM FINDINGS: Pulmonary arteries: Normal. No pulmonary emboli. Aorta: Unremarkable. No aortic aneurysm. No aortic dissection. Lungs: Unremarkable. No consolidation. No masses. Pleural spaces: Unremarkable. No pneumothorax. No pleural effusion. Heart: Unremarkable. No cardiomegaly. No pericardial effusion. Lymph nodes: Unremarkable. No enlarged lymph nodes. Bones/joints: Unremarkable. No acute fracture. Soft tissues: Unremarkable. IMPRESSION: No acute findings.
--- NOTE | 2025-04-18 16:49 | HMH.EDGENADL ---
Discharge Plan Disposition Patient Disposition: Left Against Medical Advice Condition: Good Prescriptions Prescriptions: No Action (DME) Dexcom G7 Sensor Device See Rx Instructions .Route Qty: 3 3RF Rx Instructions: As directed lisinopril-hydrochlorothiazide 20-12.5 mg tablet 1 tab PO DAILY Qty: 30 5RF bisoprolol fumarate 5 mg tablet 5 mg PO DAILY Qty: 30 5RF levocetirizine 5 mg tablet 5 mg PO DAILY Qty: 30 2RF prednisone 20 mg tablet 20 mg PO BID Qty: 14 0RF Rx Instructions: Take two tablets on days 1-4. Take one tablet daily on days 5-8. On days 9-12 take one half tablet. rosuvastatin 20 mg tablet 20 mg PO DAILY Qty: 30 2RF Jardiance 25 mg tablet 25 mg PO DAILY Patient Comments: TAKE 1 TABLET BY MOUTH ONCE DAILY Eliquis 5 mg tablet 5 mg PO BID Qty: 60 2RF metformin 1,000 mg tablet See Rx Instructions .ROUTE .COMPLEX Qty: 180 3RF Dose Instruction: Take 1 tablet by mouth twice daily Rx Instructions: Take 1 tablet by mouth twice daily Referrals Follow up/Referrals: Adolph Camp MD [Staff Physician, Cardiology] - See instructions Provider,ReferralMD [Primary Care Provider, Medical] - See instructions Activity Restrictions/Add. Instructions Additional Instructions/Restrictions: Have made you an appointment with Dr. Camp on April 22 at 9am. He can help you with your syncopal episodes, but you likely need further workup for this. You likely also need an MRI of your brain, follow-up with your primary care provider to get this scheduled. Return to the emergency department if you have any progression or change in your neurologic symptoms. Clinical Impressions Clinical Impression: Pre-syncope, Facial numbness Print Language Print Language: Korean Discharge ED Provider: Clementine Cook Adult HPI General Chief complaint: Chest Pain Stated complaint: Chest pain Time Seen by Provider: 04/18/25 16:21 Mode of Arrival: Ambulatory Source of Information: Patient Description of Symptoms (Recalled from ER Triage Doc. by RN): pt presents to ED with c/o chest pain, pre syncope symtpoms. pts at bedside reports taht last night pt had to sit down while they were working due to feeling faint. reports that pt had to lay down on the ground last night due to feeling faint. pt and report no fall and no LOC. pt reports right eye blurry vision and left lower leg sensation difference. 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 Patient states that earlier today he had chest pain that lasted for about 30 minutes felt pressure and like that has since subsided. Patient has been feeling more short of breath for the last few days. Patient denies any upper respiratory symptoms such as cough fevers chills. Patient has been taking his Eliquis as prescribed. Patient states that he has been feeling more lightheaded and having presyncopal episodes when he goes to squat. Patient states that he will then have to lay down to relieve his symptoms. Patient states that yesterday he had some right sided jaw numbness while he was eating but did not have any headache vision changes or other numbness or weakness in his body. Patient states that this occurred last night but has since resolved. States that some of the symptoms have been occurring since he was diagnosed with his DVT back in December but has gotten worse over the last few days. The triage note mentions left lower leg sensation difference however on my questioning patient reported that it was just the right jaw no lower extremity or upper extremity sensory or motor changes on my history taking. Related Data Home Medications ?Medication ?Instructions ?Recorded ?Confirmed empagliflozin 25 mg tablet 25 mg PO DAILY 03/26/25 04/15/25 (Jardiance) Previous Rx's ?Medication ?Instructions ?Recorded rosuvastatin 20 mg tablet 20 mg PO DAILY #30 tabs 02/12/25 blood-glucose sensor (Dexcom G7 #3 ea 02/15/25 Sensor device) apixaban 5 mg tablet (Eliquis) 5 mg PO BID #60 tabs 02/26/25 bisoprolol fumarate 5 mg tablet 5 mg PO DAILY #30 tabs 02/26/25 lisinopril 20 1 tab PO DAILY #30 tabs 02/26/25 mg-hydrochlorothiazide 12.5 mg tablet metformin 1,000 mg tablet See Rx Instructions .Route 03/18/25 Held on 04/02/25. .COMPLEX #180 tabs Instructions: Resume on 04/05/25. hold for 2 days levocetirizine 5 mg tablet 5 mg PO DAILY #30 tabs 04/10/25 prednisone 20 mg tablet 20 mg PO BID #14 tabs 04/10/25 Allergies Allergy/AdvReac Type Severity Reaction Status Date / Time No Known Allergies Allergy Verified 04/15/25 11:14 [facility] Disclaimer: The information contained in this section may have been updated after the patient was seen, as this information can be updated by other users. Medical History Abnormal stress test HTN (hypertension) Syncope Chest pain Abnormal EKG SOB (shortness of breath) on exertion Angina pectoris DM2 (diabetes mellitus, type 2) Paget-Schroetter syndrome Diabetes Surgical History Hx of cholecystectomy Family History Mother Diabetes Hypertension Father Stroke Social History Smoking Status: Never smoker alcohol intake: never current occupational status: previously employed Travel in the last 8 weeks?: Inside the [place] Have you lived/traveled outside US in past 30 days?: No Contact w/someone who lives/traveled outside US past 30 days?: No Exposure to someone with infectious disease in past 14 days?: No Do you have a fever (greater than 100.4 F or 38 C)?: No Have you tested positive for COVID-19?: No Exposed to someone with COVID-19 in past 14 days?: No Do you have a sore throat?: No Do you have a cough?: No Do you have any weakness?: No Do you have any diarrhea?: No Are you experiencing any unusual bleeding?: No Do you have any muscle aches/pain?: No Do you have any abdominal pain?: No Are you experiencing loss of taste or smell?: No Other Medical History Have you received the Pneumonia Vaccine: No ROS Obtained: Yes All systems reviewed & no additional complaints except as documented and Yes Systems reviewed as appropriate & no additional complaints except as documented Physical Exam General General appearance: alert and in no apparent distress Head Head exam: atraumatic, normocephalic and normal inspection Eye Eye exam: Present normal appearance, PERRL and EOMI; Absent scleral icterus ENT ENT exam: Present normal exam and normal external ear exam Neck Neck exam: Present normal inspection and full ROM Chest Chest inspection: Present normal inspection and symmetric chest wall rise Respiratory Respiratory exam: Present normal lung sounds bilaterally; Absent respiratory distress or wheezes Cardiovascular Cardiovascular exam: Present regular rate, normal rhythm and normal heart sounds Abdominal Exam Abdominal exam: Present soft and distention; Absent tenderness, guarding or rebound Extremities Exam Extremities exam: Present normal inspection and full ROM Back Exam Back exam: Present normal inspection and full ROM Neurological Exam Neurological exam: Present alert, oriented X3, CN II-XII intact and normal gait; Absent motor sensory deficit or reflexes normal Psychiatric Psychiatric exam: Present normal affect and normal mood Skin Skin exam: Present warm and dry Medical Decision Making Medical Records Medical records reviewed: Yes I reviewed the patient's medical records. Screening: Per USPSTF and CDC recommendations, given the prevalence of disease in our region, it is our hospital?s policy to screen for HIV and viral Hepatitis for all patients aged 18 and over and those with ongoing risk factors. Darryl Inquiry Pt receiving controlled substance: No Vital Signs: 04/18/25 16:20 04/18/25 16:31 04/18/25 17:00 Temperature 97.8 F Temperature Source Oral Pulse Rate 65 68 Pulse Rate [Left Radial] 72 Pulse Rate [Orthostatic Lying] Pulse Rate [Orthostatic Sitting] Pulse Rate [Orthostatic Standing] Respiratory Rate 15 13 19 Blood Pressure 107/63 L 114/67 Blood Pressure [Orthostatic Lying] Blood Pressure [Orthostatic Sitting] Blood Pressure [Orthostatic Standing] Blood Pressure [Right Arm] 133/79 Blood Pressure Mean Blood Pressure Mean [Right Arm] 97 02 Sat by Pulse Oximetry 100 99 97 Oxygen Delivery Method Room Air 04/18/25 17:41 04/18/25 17:50 04/18/25 17:51 Temperature Temperature Source Pulse Rate 68 75 Pulse Rate [Left Radial] Pulse Rate [Orthostatic Lying] 62 Pulse Rate [Orthostatic Sitting] 69 Pulse Rate [Orthostatic Standing] 71 Respiratory Rate 16 17 Blood Pressure 127/72 127/79 Blood Pressure [Orthostatic Lying] 121/68 Blood Pressure [Orthostatic Sitting] 127/79 Blood Pressure [Orthostatic Standing] 122/75 Blood Pressure [Right Arm] Blood Pressure Mean Blood Pressure Mean [Right Arm] 02 Sat by Pulse Oximetry 99 98 Oxygen Delivery Method 04/18/25 18:00 04/18/25 19:00 04/18/25 19:16 Temperature Temperature Source Pulse Rate 68 60 62 Pulse Rate [Left Radial] Pulse Rate [Orthostatic Lying] Pulse Rate [Orthostatic Sitting] Pulse Rate [Orthostatic Standing] Respiratory Rate 16 18 16 Blood Pressure 127/80 134/82 134/82 Blood Pressure [Orthostatic Lying] Blood Pressure [Orthostatic Sitting] Blood Pressure [Orthostatic Standing] Blood Pressure [Right Arm] Blood Pressure Mean 103 Blood Pressure Mean [Right Arm] 02 Sat by Pulse Oximetry 99 99 99 Oxygen Delivery Method Room Air Room Air 04/18/25 19:27 04/18/25 19:30 04/18/25 20:00 Temperature Temperature Source Pulse Rate 56 L 56 L Pulse Rate [Left Radial] Pulse Rate [Orthostatic Lying] Pulse Rate [Orthostatic Sitting] Pulse Rate [Orthostatic Standing] Respiratory Rate 16 18 13 Blood Pressure 141/83 H 127/79 132/83 Blood Pressure [Orthostatic Lying] Blood Pressure [Orthostatic Sitting] Blood Pressure [Orthostatic Standing] Blood Pressure [Right Arm] Blood Pressure Mean Blood Pressure Mean [Right Arm] 02 Sat by Pulse Oximetry 99 99 100 Oxygen Delivery Method 04/18/25 20:31 04/18/25 20:36 Temperature 98.6 F 98.6 F Temperature Source Tympanic Pulse Rate 55 L 55 L Pulse Rate [Left Radial] Pulse Rate [Orthostatic Lying] Pulse Rate [Orthostatic Sitting] Pulse Rate [Orthostatic Standing] Respiratory Rate 19 19 Blood Pressure 132/83 132/83 Blood Pressure [Orthostatic Lying] Blood Pressure [Orthostatic Sitting] Blood Pressure [Orthostatic Standing] Blood Pressure [Right Arm] Blood Pressure Mean Blood Pressure Mean [Right Arm] 02 Sat by Pulse Oximetry 100 Oxygen Delivery Method Room Air Room Air Lab Data Lab results reviewed: Yes I reviewed the patient's lab results. Lab Results 04/18/25 16:20: WBC 17.0 H, RBC 4.95, Hgb 15.2, Hct 42.6, MCV 86.1, MCH 30.7, MCHC 35.7 H, RDW 11.7, Plt Count 289, MPV 10.7 H, Neut % (Auto) 65.6, Lymph % (Auto) 22.4, [place] % (Auto) 9.1, Eos % (Auto) 1.0, Baso % (Auto) 0.5, Neut # (Auto) 11.2 H, Lymph # (Auto) 3.8, [place] # (Auto) 1.5 H, Eos # (Auto) 0.2, Baso # (Auto) 0.1, PT 12.4, INR 1.13 H, APTT 25.6, Sodium 136, Potassium 3.6, Chloride 99, Carbon Dioxide 23, Anion Gap 17.6 H, BUN 29 H, Creatinine 1.70 H, Estimated Creat Clear 63, Estimated GFR 43 L, Est GFR ( Amer) 52 L, Glucose 260 H, Calcium 10.0, Magnesium 1.7, Total Bilirubin 1.1, AST 31, ALT 35, Alkaline Phosphatase 60, Troponin I < 0.01, Total Protein 7.4, Albumin 4.4, Globulin 3.0, Albumin/Globulin Ratio 1.5, Lipase 136, HCV Ab JEMMA w/Rflx PCR Qn Negative, HIV Ag/Ab Combo Qual Negative 04/18/25 17:45: VBG pH 7.31, VBG pCO2 49.9, VBG pO2 33.1, VBG HCO3 24.4, VBG Total CO2 25.9, VBG O2 Saturation 60.2, VBG Base Excess -1.9, VBG Lactic Acid 2.5 H 04/18/25 19:20: Troponin I < 0.01 04/18/25 16:20 04/18/25 16:20 Orders (Tests/Meds): ED MEDICATIONS Discontinued Medications Generic Name Dose Route Start Last Admin Trade Name Freq PRN Reason Stop Dose Admin Sodium Chloride 1,000 mls @ 999 mls/hr 04/18/25 16:47 04/18/25 18:06 Sod Chlor 0.9% 1000ml Bag IV 04/18/25 17:47 Infused .Q1H1M ONE Infusion Iopamidol 150 ml 04/18/25 17:27 04/18/25 17:28 Iopamidol-370 (76%);100ml Bottle IV 04/18/25 17:28 150 ml ONCE ONE Administration Sodium Chloride 10 ml 04/18/25 17:27 04/18/25 17:28 Sodium Chloride 0.9% 10ml Syr (Rad Only) IV 05/18/25 17:26 10 ml NEEDED PRN Administration Maintain IV Site Sodium Chloride 50 ml 04/18/25 17:27 04/18/25 17:28 0.9 % Sodium Chloride 50 Ml Vial IV 04/18/25 17:28 50 ml ONCE ONE Administration ORDERS Category Date Time Status CT angio chest PE protocol Stat Cat Scan 04/18/25 16:[address] angio head Stat Cat Scan 04/18/25 16:[address] angio neck Stat Cat Scan 04/18/25 16:[address] head/brain wo con Stat Cat Scan 04/18/25 16:45 Completed CXR 2 view (NOT portable) [XR chest 2V] Stat Exams 04/18/25 16:45 Completed CBC [Complete Blood Count Auto Diff] Stat Lab 04/18/25 16:20 Completed CMP [Comprehensive Metabolic Panel] Stat Lab 04/18/25 16:20 Completed HIV Combo Stat Lab 04/18/25 16:20 Completed Hepatitis C Ab Qual. W/ RFX Stat Lab 04/18/25 16:20 Completed Lipase Stat Lab 04/18/25 16:20 Completed Magnesium Stat Lab 04/18/25 16:20 Completed Mini Respiratory Panel Stat Lab 04/18/25 16:47 Ordered PT/PTT Stat Lab 04/18/25 16:20 Completed Prothrombin Time INR Stat Lab 04/18/25 16:20 Completed Trop I [Troponin I] Stat Lab 04/18/25 16:20 Completed Troponin I Q3H Lab 04/18/25 19:20 Completed VBG [Venous Blood Gas] Stat RT 04/18/25 17:45 Completed Medical Decision Narrative: Patient is a 50-year-old gentleman who presented to the emergency department with multiple presyncopal episodes as well as some right sided facial numbness. Patient reports that his symptoms started last night more than 24 hours ago. On arrival, patient was hemodynamically stable with unremarkable vital signs. Differential includes but not limited to: ACS/WV, pulmonary embolism, cardiac syncope, presyncope, electrolyte abnormalities, dehydration, intracranial hemorrhage, intracranial ischemia, amongst others. Patient's labs were reviewed and interpreted by myself: CBC had a mild leukocytosis of 17, hemoglobin was stable. INR mildly elevated at 1.13. CMP was unremarkable. VBG with mild elevated lactate at 2.5. Initial troponin less than 0.01, second troponin less than 0.01. CT head, CTA head and neck as well as CT chest showed no acute intracranial or intrathoracic pathology. EKG was reviewed and interpreted by myself and showed sinus bradycardia without acute ST or T wave changes concerning for ischemia. Of note patient was recently seen by Dr. Camp on and had a cardiac catheterization done. Dr. Camp recommended a loop recorder for presyncopal episodes that was not found on the Holter monitor. On evaluation, patient was reporting numbness to the right side of his face but his neurologic exam was otherwise unremarkable and patient had no sensory deficits or motor deficits. Patient's NIH was 0. Patient states that when he gets and feels lightheaded he will have blurry vision in the right eye that will eventually resolve after several hours. At this time given patient's unremarkable workup I felt that he should be admitted for further workup of his presyncope as well as likely an MRI of his head. At this time, patient did not wish to stay in the hospital, he and patient was signed out AMA. Patient was scheduled an appointment with Dr. Camp on Tuesday. Patient was advised to follow-up with his primary care provider to get an MRI scheduled. Patient was given return precautions and patient was otherwise discharged home in stable condition. Critical Care Critical Care Time Critical Care Time: No
[2025-04-18] MEDS: 0.9 % SODIUM CHLORIDE 1000ML 1,000 ML 999 ML IV (16:54)
[2025-04-18 16:59] LABS: Alanine Aminotransferase 35 U/L (12-78); Albumin Level 4.4 g/dl (3.5-5.0); Albumin/Globulin Ratio 1.5 (1.1-1.8); Alkaline Phosphatase 60 U/L (38-126); Anion Gap 17.6 mEq/L (5-15); Aspartate Amino Transferase 31 U/L (17-59); Bilirubin,Total 1.1 mg/dl (0.2-1.3); Blood Urea Nitrogen 29 mg/dl (9-20); Calcium 10.0 mg/dl (8.4-10.2); Carbon Dioxide 23 mmol/L (22.0-30.0); Chloride 99 mmol/L (98-107); Creatinine Clearance Estimated 63 mL/min (50-200); Creatinine,Serum 1.70 mg/dl (0.66-1.25); Estimated Glomerular Filt Rate 43 ml/min (>60); GFR (African American) 52 ML/MIN (>60); Globulin 3.0 g/dL (1.3-3.2); Glucose 260 mg/dl (74-100); Lipase 136 U/L (23-300); Magnesium 1.7 mg/dl (1.6-2.3); Potassium 3.6 mmoL/L (3.5-5.1); Sodium 136 mmol/L (136-145); Total Protein,Serum 7.4 g/dl (6.3-8.2)
[2025-04-18 17:05] LABS: Activated Partial Thrombo Time 25.6 seconds (22.8-30.6); INR 1.13 (0.9-1.1); Prothrombin Time 12.4 seconds (10.1-12.5)
[2025-04-18] MEDS: 0.9 % SODIUM CHLORIDE 50 ML VIAL IV (17:28)
[2025-04-18] MEDS: SODIUM CHLORIDE 0.9% 10ML SYR (RAD ONLY) 10 ML IV (17:28)
[2025-04-18] MEDS: IOPAMIDOL-370 (76%);100ML BOTTLE 150 ML IV (17:28)
[2025-04-18 17:33] LABS: Troponin I < 0.01 ng/ml (0.00-0.034)
--- NOTE | 2025-04-18 17:47 | PC.NURSE ---
call made to respiratory for VBG
[2025-04-18 17:52] LABS: VBG HCO3 24.4 mmol/L (23-30); VBG PCO2 49.9 mmol/L (35-51); VBG PH 7.31 mmol/L (7.31-7.41); VBG PO2 33.1 mmol/L (28-40)
[2025-04-18 17:54] LABS: Lactate Venous 2.5 mmol/L (0.4-2.0)
[2025-04-18 18:17] LABS: Hepatitis C Ab Qual. W/ RFX NEGATIVE (Negative)
[2025-04-18 20:01] LABS: Troponin I < 0.01 ng/ml (0.00-0.034)
[2025-04-18 20:08] LABS: Hematocrit 42.6 % (42.0-52.0); Hemoglobin 15.2 g/dL (14.1-18.0); Immature Granulocytes % 1.4 %; Mean Corpuscular HGB Conc 35.7 g/dL (31.8-35.4); Mean Corpuscular Hemoglobin 30.7 pg (27.0-31.2); Mean Corpuscular Volume 86.1 fl (80-94); Nucleated Red Blood Cells % 0 %; Platelet Count 289 K/mm3 (142-424); Red Blood Count 4.95 M/mm3 (4.60-6.20); Red Cell Distribution Width-SD 36.6 fL; White Blood Count 17.0 K/mm3 (4.8-10.8)
[2025-04-18 21:54] LABS: Reflex Lactic Add Lactic Reflex
== END 2025-04-18 20:38 | disposition left against medical advice (07) ==
PROVIDERS: Emergency Provider Student in an Organized Health Care Education/Training Program
DX: R07.9 Chest pain, unspecified (principal); R00.1 Bradycardia, unspecified; R55 Syncope and collapse; R20.0 Anesthesia of skin; R74.02 Elevation of levels of lactic acid dehydrogenase [LDH]; D72.829 Elevated white blood cell count, unspecified; E11.65 Type 2 diabetes mellitus with hyperglycemia; I10 Essential (primary) hypertension
CPT/HCPCS: 70450; 70496; 70498; 71046; 71275; 80053; 82803; 83690; 83735; 84484; 85025; 85610; 85730; 86803; 87389; 93005; 96360; 99285; J7030; Q9967

== ENCOUNTER 2025-04-22 09:46 | Outpatient (CLI) | payer MEDICAID, SELFPAY | END 2025-04-22 23:59 | disposition home or self-care (01) | LOC: RT 09:46 | PROVIDERS: PCP Internal Medicine; Visit Provider Nurse Practitioner Family | DX: I49.1 Atrial premature depolarization (principal); I49.3 Ventricular premature depolarization; R55 Syncope and collapse | CPT/HCPCS: 93270; 93272 ==

== ENCOUNTER 2025-06-10 15:41 | Outpatient (CLI) | payer MEDICAID, SELFPAY ==
--- OUTSIDE RECORDS SUMMARY | 2025-05-22 11:47 | XMS_ITS | Encounter Summary ---
Author Organization Healthcare Address [address] [place] [address] Care Team Providers Care Weed Burner Name Role Phone Rupal Levineew Chary BROOKS Primary Care Provider [phone] Reason for Referral * Imaging (Routine) - Closed Specialty Diagnoses / Procedures Referred By Sia moar Referred To Contact Cardiology Diagnoses Acute embolism and thrombosis of right axillary vein (CMS/HCC) Procedures VAS US Venous Duplex Upper Extremity Unilateral Right Berto Goodson MD [address] [address] Phone: tel: fax: Referral ID Status Reason Start Date Expiration Date V isits Requested Visits Authorized [id number] Closed Perform Procedure 03/04/2025 09/03/2026 1 1 Reason for Visit * Imaging (Routine) - Closed Specialty Diagnoses / Procedures Referred By Sia mora Referred To Contact Cardiology Diagnoses Acute embolism and thrombosis of right axillary vein (CMS/HCC) Procedures VAS US Venous Duplex Upper Extremity Unilateral Right Berto Goodson MD [address] [facility] [address] [place] [address] Phone: tel: fax: Referral ID Status Reason Start Date Expiration Date V isits Requested Visits Authorized [id number] Closed Perform Procedure 03/04/2025 09/03/2026 1 1 Encounter Details Date Type Department Care Team (Latest Contact Info) Description 05/22/2025 11:47 AM EST - 05/22/2025 11:59 PM EST Hospital En[facility] [place] [facility] [address] [place] [address] Acute embolism and thrombosis of right axillary [...] Info) Description 09/25/2025 7:00 AM EDT Appointment [facility] [address] [facility] 5th Floor Wing D, [address] [place] [address] 09/25/2025 7:30 AM EDT Appointment [facility] [address] [facility] 5th Floor Wing [address], [address] [place] [address] 09/25/2025 8:40 AM EDT Office Visit [facility] [address] [facility] 5th Floor Wing [address], [address] [place] [address] Berto Goodson MD [address] [place] [address] documented as of this encounter Procedures Procedure [...] documented as of this encounter Care Teams Weed Burner Relationship Specialty Start Date End Date Aodlph Levine DO [address] [place] [address] [place] [address] (work) PCP - General 03/04/25 documented as of this encounter
--- OUTSIDE RECORDS SUMMARY | 2025-05-22 12:40 | XMS_ITS | Encounter Summary ---
Author Organization Healthcare Address [address] [place] [address] Care Team Providers Care Manager Of It Name Role Phone Abner Adolph Chary BROOKS Primary Care Provider [phone] Reason for Referral * Imaging (Routine) - Pending Review Specialty Diagnoses / Procedures Referred By Contac t Referred To Contact Cardiology Diagnoses Acute embolism and thrombosis of right axillary vein (CMS/HCC) Sensation of cold in finger Procedures VAS Wrist Brachial Index - Segmental Berto Goodson MD [address] [address] Phone: tel: fax: Referral ID Status Reason Start Date Expiration Date Visits Requested Visits Authorized [id number] Pending Review Perform Procedure 05/22/2025 11/21/2026 1 1 * Imaging (Routine) - Pending Review Specialty Diagnoses / Procedures Referred By Contac t Referred To Contact Cardiology Diagnoses Facial numbness Procedures VAS US Carotid Duplex Bilateral Berto Goodson MD [address] [address] Phone: tel: fax: Referral ID Status Reason Start Date Expiration Date Visits Requested Visits Authorized [id number] Pending Review Perform Procedure 05/22/2025 11/21/2026 1 1 Reason for Visit * Reason Comments Acute embolism and thrombosis of right a xillary vein Encounter Details Date Type Department Care Team (Latest Contact Info) Description 05/22/2025 12:40 PM EST Office Visit [facility] [address] 5th Floor Wing [address], [address] [place] [address] Berto Goodson MD [address] [facility] [address] [place] [address] Acute embolism and thrombosis of right axillary vein (CMS/HCC) (Primary Dx); Sensation of cold in finger; Facial numbness Social History Tobacco Use Types Packs/Day Years [...] Sign Reading Time Taken Comments Blood Pressure 111/76 05/22/2025 12:35 PM EST Pulse 64 05/22/2025 12:26 PM EST Temperature 36.7 C (98.1 F) 05/22/2025 12:26 PM EST Respiratory Rate - - Oxygen Saturation 99% 05/22/2025 12:26 PM EST Inhaled Oxygen Concentration - - Weight 86.4 kg (190 lb 7.6 oz) 05/22/2025 12:26 PM EST Height 170.2 cm (5' 7 ) 05/22/2025 12:26 PM EST Body Mass Index 29.83 05/22/2025 12:26 PM EST documented in this encounter Miscellaneous Notes * Progress Notes - Berto Goodson MD - 05/22/2025 12:40 PM EST Dear Adolph Levine, DO, History of Present Illness The patient is a male who presents for evaluation of right arm pain and cold sensation. He reports experiencing pain in his right finger, describing it as extremely sensitive, with the pain originating from the knuckle and radiating distally. He also notes a sensation of coldness in thefinger, but no numbness. His hand was previously swollen, and it was initially suspected to be a blood clot due to the severity of the pain. A thrombectomy was performed by Dr. Palafox at [facility] approximately 3 months ago, resulting in a significant reduction in swelling and pain. Currently, he reports a decrease in finger pain but continues to experience coldness upon movement. No history of trauma to area. No evidence of cervical rib. He recalls an incident where he was pressure washing for about 15 minutes, after which he experienced hand swelling and pain. Initially, he consulted a hand doctor suspecting carpal tunnel syndrome, but was later diagnosed with a blood clot. 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 He is currently on Eliquis, which has been effective in managing his symptoms. Additionally, he has been experiencing episodes of fainting, particularly when attempting to assistwith drop forger helper such as showering. These episodes are often accompanied by blurred vision in his right eye. He also experiences fainting when transitioning from a squatting to standing position. His blood pressure readings have been lower than his usual range, with recent readings of 111/76 and 107/74. There was an instance where he nearly fainted, and his pulse was undetectable. He has undergone an ultrasound of his neck veins, but not of his arteries. He has also had a CT scan with contrast, but it did not include his head or neck. SOCIAL HISTORY Occupations: Made donuts since childhood Vascular Surgery History: Right axillary SCV Thrombectomy performed by Dr. Camp at [facility] approximately 3 months ago. I personally and independently reviewed and interpreted the Vascular Lab Images from today's visit which showed: right SVC stenosis His chronic comorbid conditions that impact our treatment planning include: I reviewed the following co-morbidities which are stable and controlled: Patient Active Problem List Diagnosis Date Noted Sensation of cold in finger 05/22/2025 Facial numbness 05/22/2025 Acute embolism and thrombosis of right axillary vein (CMS/HCC) 03/04/2025 The following portions of the chart were reviewed this encounter and updated as appropriate: Tobacco Allergies Meds Problems Med Hx Surg Hx Fam Hx Subjective Review of Systems Objective Physical Exam Physical Exam Extremities: Brachial artery is palpable on the right arm. Radial and ulnar arteries are nonpalpable on the right arm. Radial and ulnar arteries are nonpalpable on the left arm. Brachial artery is palpable on the left arm. Motor and sensory functions are intact in both hands. Assessment/Plan In Summary: Delbert Lazo is a 50 y.o. year old male who we saw today in clinic. I discussed the test interpretations and management with associated orders of the following medical conditions of: Problem List Items Addressed This Visit Acute embolism and thrombosis of right axillary vein (CMS/HCC) - Primary Relevant Orders VAS Wrist Brachial Index - Segmental Sensation of cold in finger Relevant Orders VAS Wrist Brachial Index - Segmental Facial numbness Relevant Orders VAS US Carotid Duplex Bilateral We will see him back for: Follow up in about 1 month (around 06/21/2025). . Assessment & Plan 1. Right subclavian vein thrombosis. Symptoms suggest a potential blockage in the right subclavian vein, likely due to scar tissue from extensive upper extremity use. Significant pain and cold sensitivity in the right arm and hand, withoccasional swelling, are reported. An arterial ultrasound of the neck will be conducted to examine the carotid and vertebral arteries. Wrist brachial indices will be measured to assess arterial bloodflow in the arms. A comprehensive arterial workup will be performed, including an evaluation of thehead, neck, and arms. The patient will continue on Eliquis, and a prescription refill will be provided. 2. Syncope. Episodes of syncope occur, particularly when performing activities involving the upper extremities or when transitioning from squatting to standing. Blood pressure readings have been lower than usual, which may contribute to these episodes. An arterial ultrasound of the neck will be conducted to examine the carotid and vertebral arteries to rule out any arterial blockages that might be contributing to the syncope. Risks, benefits, and alternatives of the proposed diagnostic tests and continued use of Eliquis were discussed. The arterial ultrasound and wrist brachial indices are non-invasive procedures that will help determine the cause of the symptoms. Continuing Eliquis is essential to prevent further clot formation, and the prescription will be renewed. The patient was informed that the workup might takea month or two due to the holiday season. No immediate life-threatening conditions are suspected, but further evaluation is necessary to ensure comprehensive care. Follow-up in 1 to 2 months. documented in this encounter Plan of Treatment Upcoming Encounters Date Type Department Care Team (Late st Contact Info) Description 09/25/2025 7:00 AM EDT Appointment [facility] Lab [address] [place] [address] 09/25/2025 7:30 AM EDT Appointment [facility] [address] [place] [address] 09/25/2025 8:40 AM EDT Office Visit [facility] [address] [place] [address] Berto Goodson MD [address] [facility] [address] [place] [address] Scheduled Orders Name Type Priority Associated Diagnoses Order Schedule VAS US Carotid Duplex Bilateral Vascular Ultrasound Routine Facial numbness Expected: 06/21/2025, Expires: 11/23/2026 VAS Wrist Brachial Index - Segmental Vascular Ultrasound Routine Acute embolism and thrombosis of right axillary vein (CMS/HCC) Sensation of cold in finger 1 Occurrences starting 05/22/2025 until 11/19/2026 documented as of this encounter Visit Diagnoses Diagnosis Acute embolism and thrombosis of right axillary vein (CMS/HCC)- Primary Sensation of cold in finger Facial numbness Disturbance of skin sensation documented in this encounter Additional Health Concerns Assessment Noted Time A fall risk assessment has been complete d for the patient 05/22/2025 12:34 PM EST A Body Mass Index follow-up plan has been documented for the patient 05/22/2025 1:58 PM EST documented as of this encounter Care Teams Manager Of It Relationship Specialty Start Date End Date Adolph Levine DO [address] [place] [address] [place] [address] PCP - General 03/04/25 documented as of this encounter
--- OUTSIDE RECORDS SUMMARY | 2025-06-10 15:51 | XMS_ITS | Encounter Summary ---
Author Organization Healthcare Address [address] [place] [address] Care Team Providers Care Quality Management Nurse Name Role Phone Adolph Levine Chary DO Primary Care Provider [phone] Encounter Details Date Type Department Care Team (Late st Contact Info) Description 01/31/2025 Orders Only External Location [address] [place] [address] Jahaira Golden, DO [address] [place] [address] Social History Tobacco Use Types Packs/Day Years Used Date Smoking Tobacco: Never Sex and Gender Information Value Date Recorded Sex Assigned at Not on file Legal Sex Male 6:57 PM EDT Gender Identity Not on file Sexual Orientation Not on file documented as of this encounter Plan of Treatment Upcoming Encounters Date Type Department Care Team (Late Contact Info) Description 09/25/2025 7:00 AM EDT Appointment [facility] [address] [place] [address] 09/25/2025 7:[address] [facility] Lab [address] [place] [address] 09/25/2025 8:40 AM EDT Office Visit [facility] [address] [place] [address] Berto Goodson MD [address] [facility] [address] [place] [address] documented as of this encounter Procedures Procedure Name Priority Date/Time Associated Diagnosis Comments US OUTSIDE IMAGES 01/31/2025 3:31 PM EDT documented in this encounter Results * US OUTSIDE IMAGES (01/31/2025 3:31 PM EDT) Anatomical Region Laterality Modality Ultrasound 01/31/2025 3:31 PM EDT us Jahaira N [place] DO IMG US PROCEDURES Final Result documented in this encounter Visit Diagnoses Not on filedocumented in this encounter Care Teams Quality Management Nurse Relationship Specialty Start Date End Date Adolph Levine DO [address] [place] [address] PCP - General 03/04/25 documented as of this encounter
--- OUTSIDE RECORDS SUMMARY | 2025-06-10 15:51 | XMS_ITS | Encounter Summary ---
Author Organization Healthcare Address [address] [place] [address] Care Team Providers Care Tank Farm Attendant Name Role Phone Adolph Levine DO Primary Care Provider [phone] Encounter Details Date Type Department Care Team (Late st Contact Info) Description 05/22/2025 Orders Only [facility] [address] [place] [address] Berto Goodson MD [address] [facility] [address] [place] [address] Acute embolism and thrombosis of [...] Appointment [facility] [address] [place] [address] 09/25/2025 7:30 AM EDT Appointment [facility] [address] [facility] 5th Floor [address] [place] [address] 09/25/2025 8:40 AM EDT Office Visit [facility] [address] [facility] 5th Floor [address] [place] [address] Berto Goodson MD [address] [facility] [address] [place] [address] documented as of this encounter [...] documented as of this encounter Care Teams Tank Farm Attendant Relationship Specialty Start Date End Date Adolph Levine DO [address] [place] [address] PCP - General 03/04/25 documented as of this encounter
--- OUTSIDE RECORDS SUMMARY | 2025-06-10 15:51 | XMS_ITS | Encounter Summary ---
Author Organization Healthcare Address [address] [place] [address] Care Team Providers Care Nursing Aide Name Role Phone Adolph Levine DO Primary Care Provider [phone] Encounter Details Date Type Department Care Team (Latest Contact Info) Description 05/22/2025 Travel Social History Tobacco Use Types Packs/Day [...] Info) Description 09/25/2025 7:00 AM EDT Appointment [facility] [address] [place] [address] 09/25/2025 7:30 AM EDT Appointment [facility] [address] [place] [address] 09/25/2025 8:40 AM EDT Office Visit [facility] [address] [place] [address] Kellee, Berto C, MD [address] [place] [address] documented as of this encounter Visit Diagnoses Not on filedocumented in this encounter Additional Health Concerns Assessment Noted Time A fall risk assessment has been complete d for the patient 05/22/2025 12:34 PM EST A Body Mass Index follow-up plan has been documented for the patient 05/22/2025 1:58 PM EST documented as of this encounter Care Teams Nursing Aide Relationship Specialty Start Date End Date Adolph Levine DO [address] [place] [address] [place] [address] PCP - General 03/04/25 documented as of this encounter
--- OUTSIDE RECORDS SUMMARY | 2025-06-10 15:51 | XMS_ITS | Encounter Summary ---
Author Organization Healthcare Address [address] [place] [address] Care Team Providers Care Solar Electric Installer Name Role Phone Adolph Levine DO Primary Care Provider [phone] Encounter Details Date Type Department Care Team (Late st Contact Info) Description 01/31/2025 Orders Only External Location [address] [place] [address] Provider, External Social History Tobacco Use Types [...] Info) Description 09/25/2025 7:00 AM EDT Appointment [facility] Lab [address] [place] [address] 09/25/2025 7:30 AM EDT Appointment [facility] [address] [place] [address] 09/25/2025 8:40 AM EDT Office Visit [facility] [address] [place] [address] Berto Goodson MD [address] [facility] [address] [place] [address] documented as of this encounter Procedures Procedure [...] on filedocumented in this encounter Care Teams Solar Electric Installer Relationship Specialty Start Date End Date Adolph Levine DO [address] [place] [address] [place] [address] PCP - General 03/04/25 documented as of this encounter
--- OUTSIDE RECORDS SUMMARY | 2025-06-10 15:51 | XMS_ITS | Clinical Summary ---
Author Organization Healthcare Address [address] [place] [address] Care Team Providers Care Camera Person Name Role Phone Adolph Levine Primary Care Provider [phone] Allergies No known active allergies Medications bisoprolol (Zebeta) 5 MG tablet Take 1 tablet by mouth daily. 5 Active rosuvastatin (Crestor) 20 MG tablet Take 1 tablet by mouth daily. 5 Active lisinopril-hyd roCHLOROthiazi de 20-12.5 MG tablet Take 1 tablet by mouth daily. 5 Active metFORMIN (Glucophage) 1000 MG tablet Take 1 tablet by mouth 2 times a day. Active empagliflozin (Jardiance) 10 MG Take by mouth daily. Active cyclobenzaprin e (Flexeril) 5 MG tablet Take by mouth. Active Continuous Glucose Sensor (Dexcom G7 Sensor) [facility] [place] Active levocetirizine (Xyzal) 5 MG tablet Take 1 tablet by mouth daily. 5 Active Jardiance 25 MG Take 1 tablet by mouth daily. 5 Active Eliquis 5 MG tabletIndicati ons:Acute embolism and thrombosis of right axillary vein (CMS/HCC) Take 1 tablet by mouth 2 times a day. 180 tablet 3 5 Active Eliquis 5 MG tablet Take 1 tablet by mouth 2 times a day. 5 025 Discontinued Active Problems Problem Noted Date Diagnosed Date Sensation of cold in finger 05/22/2025 Facial numbness 05/22/2025 Acute embolism and thrombosis of right axillary vein 03/04/2025 Encounters Date Type Department Care Team Description 05/22/2025 12:40 PM EST Office Visit [facility] [address] [place] [address] Berto Goodson MD Acute embolism and thrombosis of right axillary vein (CMS/HCC) (Primary Dx); Sensation of cold in finger; Facial numbness 05/22/2025 11:47 AM EST - 05/22/2025 11:59 PM EST Hospital Encounter [facility] [address] [place] [address] Acute embolism and thrombosis of right axillary vein (CMS/HCC) Discharge Disposition: Home or Self Care 05/22/2025 Orders Only [facility] [address] [place] [address] [address] [place] [address] Berto Goodson MD Acute embolism and thrombosis of right axillary vein (CMS/HCC) (Primary Dx) 05/22/2025 Travel from Last 3 Months Family History Medical [...] Mass Index 29.83 05/22/2025 12:26 PM EST Plan of Treatment Upcoming Encounters Date Type Department Care Team (Late st Contact Info) Description 09/25/2025 7:00 AM EDT Appointment [facility] [address] [place] [address] 09/25/2025 7:30 AM EDT Appointment [facility] [address] [place] [address] 09/25/2025 8:40 AM EDT Office Visit [facility] [address] [place] [address] Berto Goodson MD [address] [place] [address] Health Maintenance Due Date Last Done Comments [...] 02/16/2021 Sigmoidoscopy 02/16/2021 [facility]-Colorectal Cancer Screening 02/16/2021 [id number] Vaccine ( - 2024- season) 2025 [facility]-Influenza Vaccine (#1) 2025 [facility]-Zoster Vaccines (1 of 2) 02/16/2026 [facility]-Obesity Intervention Completed 025, 03/04/2025 HPV Vaccines Aged Out No longer [...] (6 to 49 Years) Aged Out No longer eligible b ased on patient's age to complete this topic [facility]-Rotavirus Vaccines Aged Out No lo nger eligible based on patient's age to complete this topic Procedures Procedure Name Priority Date/Time Associated Diagnosis Comments VAS US VENOUS DUPLEX UPPER EXTREMITY UNILATERAL Routine 05/22/2025 12:17 PM EST Acute embolism and thrombosis of right axillary vein (CMS/HCC) from Last 3 Months Results * VAS US Venous Duplex Upper [...] MD CV VASCULAR PROCEDURES Final R esult from Last 3 Months Insurance [employer] Care Teams Camera Person Relationship Specialty Start Date End Date Adolph Levine DO [address] [place] [address] [place] [address] PCP - General 03/04/25
--- OUTSIDE RECORDS SUMMARY | 2025-06-10 15:51 | XMS_ITS | Encounter Summary ---
Author Organization Healthcare Address [address] [place] [address] Care Team Providers Care Card Filer Name Role Phone Adolph Levine Chary DO Primary Care Provider [phone] Encounter Details Date Type Department Care Team (Late st Contact Info) Description 01/31/2025 Orders Only External Location [address] [place] [address] Jahaira Golden, DO [address] [place] [address] Social History Tobacco Use Types Packs/Day Years [...] Info) Description 09/25/2025 7:00 AM EDT Appointment [facility] [address] [place] [address] 09/25/2025 7:30 AM EDT Appointment [facility] [address] [place] [address] 09/25/2025 8:40 AM EDT Office Visit [facility] [address] [place] [address] Berto Goodson MD [address] [facility] [address] [place] [address] documented as of this encounter Procedures Procedure [...] on filedocumented in this encounter Care Teams Card Filer Relationship Specialty Start Date End Date dAolph Levine DO [address] [place] [address] [place] [address] PCP - General 03/04/25 documented as of this encounter
[2025-06-10 16:10] LABS: Blood Urea Nitrogen 20 mg/dl (9-20); Creatinine,Serum 1.10 mg/dl (0.66-1.25); Estimated Glomerular Filt Rate 71 ml/min (>60); GFR (African American) 86 ML/MIN (>60)
== END 2025-06-10 23:59 | disposition home or self-care (01) ==
LOC: LAB 15:42
PROVIDERS: Nurse Practitioner Family; Student in an Organized Health Care Education/Training Program; PCP Internal Medicine; Visit Provider Nurse Practitioner
DX: E11.9 Type 2 diabetes mellitus without complications (principal)
CPT/HCPCS: 36415; 82043; 82565; 84520

== ENCOUNTER 2025-06-11 12:44 | Outpatient (CLI) | payer MEDICAID, SELFPAY ==
--- OUTSIDE RECORDS SUMMARY | 2025-05-22 11:47 | XMS_ITS | Encounter Summary ---
Author Organization Healthcare Address [address] [place] [address] Care Team Providers Care Space Operations Officer Name Role Phone Rupal Levineew Chary BROOKS Primary Care Provider [phone] Reason for Referral * Imaging (Routine) - Closed Specialty Diagnoses / Procedures Referred By Sia mora Referred To Contact Cardiology Diagnoses Acute embolism and thrombosis of right axillary vein (CMS/HCC) Procedures VAS US Venous Duplex Upper Extremity Unilateral Right Berto Goodson MD [address] [address] Phone: tel: fax: Referral ID Status Reason Start Date Expiration Date V isits Requested Visits Authorized [id number] Closed Perform Procedure 03/04/2025 09/03/2026 1 1 Reason for Visit * Imaging (Routine) - Closed Specialty Diagnoses / Procedures Referred By Sia mora Referred To Contact Cardiology Diagnoses Acute embolism and thrombosis of right axillary vein (CMS/HCC) Procedures VAS US Venous Duplex Upper Extremity Unilateral Right Berto Goodson MD [address] [facility] [address] [place] [address] Phone: tel: fax: Referral ID Status Reason Start Date Expiration Date V isits Requested Visits Authorized [id number] Closed Perform Procedure 03/04/2025 09/03/2026 1 1 Encounter Details Date Type Department Care Team (Latest Contact Info) Description 05/22/2025 11:47 AM EST - 05/22/2025 11:59 PM EST Hospital Encounter [facility] [address] [place] [address] Acute embolism and thrombosis of right axillary vein (CMS/HCC) Discharge Disposition: Home or Self Care Social History Tobacco Use Types Packs/Day Years [...] on file documented as of this encounter Medications at Time of Discharge bisoprolol (Zebeta) 5 MG tablet Take 1 tablet by mouth daily. 02/26/2025 empagliflozin (Jardiance) 10 MG Take by mouth daily. lisinopril-hydroC HLOROthiazide 20-12.5 MG tablet Take 1 tablet by mouth daily. 02/12/2025 metFORMIN (Glucophage) 1000 MG tablet Take 1 tablet by mouth 2 times a day. rosuvastatin (Crestor) 20 MG tablet Take 1 tablet by mouth daily. 02/12/2025 Continuous Glucose Sensor (Dexcom G7 Sensor) misc use as directed 05/10/2025 cyclobenzaprine (Flexeril) 5 MG tablet Take by mouth. Eliquis 5 MG tabletIndications :Acute embolism and thrombosis of right axillary vein (CMS/HCC) Take 1 tablet by mouth 2 times a day. 180 tablet 3 05/22/2025 Jardiance 25 MG Take 1 tablet by mouth daily. 05/02/2025 levocetirizine (Xyzal) 5 MG tablet Take 1 tablet by mouth daily. 05/07/2025 documented as of this encounter Plan of Treatment Upcoming Encounters Date Type Department Care Team (Late st Contact Info) Description 09/25/2025 7:[address] [facility] [address] [facility] [address] [place] [address] 09/25/2025 7:[address] [facility] [address] [facility] [address] [place] [address] 09/25/2025 8:40 AM EDT Office Visit [facility] [address] [facility] [address] [place] [address] Berto Goodson MD [address] [place] [address] documented as of this encounter Procedures Procedure Name Priority Date/Time Associated Diagnosis Comments VAS US VENOUS DUPLEX UPPER EXTREMITY UNILATERAL Routine 05/22/2025 12:17 PM EST Acute embolism and thrombosis of right axillary vein (CMS/HCC) documented in this encounter Results * VAS US Venous Duplex Upper Extremity Unilateral Right (05/22/2025 12:17 PM EST) Anatomical Region Laterality Modality Upper Extremities, Vascular Left Ultr asound Impressions 05/22/2025 9:07 PM EST Right: Abnormal study; no evidence of acute DVT is identified. Evidence of Axillary vein compression with arm positioned at 180 degrees. COMMUNICATION: Per this written report. Preliminary report signed by Mindy Sapp on 05/22/2025 1:03 PM By electronically signing this report, I, the attending physician, attest that I have personally reviewed the images/data for the above examination(s) and I agree with the final edited report. Drafted by Mindy Sapp on 05/22/2025 12:57 PM Final report signed by Chance Maldonado MD on 05/22/2025 9:07 PM Narrative 05/22/2025 9:07 PM EST CLINICAL INDICATION: Acute limb swelling TECHNIQUE: Non-invasive, real time duplex exam of the upper extremity venous circulation with Doppler ultrasonic waveform and spectral analysis was performed. COMPARISON: None. FINDINGS: Right: Venous duplex demonstrates compressible IJV, subclavian, axillary, brachial, basilic and cephalic veins. The venous spectral analysis demonstrates pulsatile flow signals at the IJV and subclavian veins. The axillary vein exhibits continuos flow distal to elevated velocities when arm is positioned in the 180 degree pose. Left: Venous duplex demonstrates compressible and augmentable subclavian vein; imaged for comparison purposes. Procedure Note Chance Maldonado MD - 05/22/2025 CLINICAL INDICATION: Acute limb swelling TECHNIQUE: Non-invasive, real time duplex exam of the upper extremity venouscirculation with Doppler ultrasonic waveform and spectral analysis wasperformed. COMPARISON: None. FINDINGS: Right: Venous duplex demonstrates compressible IJV, subclavian, axillary,brachial, basilic and cephalic veins. The venous spectral analysisdemonstrates pulsatile flow signals at the IJV and subclavian veins. The axillary vein exhibits continuos flow distal to elevated velocitieswhen arm is positioned in the 180 degree pose. Left: Venous duplex demonstrates compressible and augmentable subclavianvein; imaged for comparison purposes. IMPRESSION: Right: Abnormal study; no evidence of acute DVT is identified. Evidence ofAxillary vein compression with arm positioned at 180 degrees. COMMUNICATION: Per this written report. Preliminary report signed by Mindy Sapp on 05/22/2025 1:03 PM By electronically signing this report, I, the attending physician, attestthat I have personally reviewed the images/data for the aboveexamination(s) and I agree with the final edited report. Drafted by Mindy Sapp on 05/22/2025 12:57 PM Final report signed by Chance Maldonado MD on 05/22/2025 9:07 PM Berto Goodson MD CV VASCULAR PROCEDURES Final R esult documented in this encounter Visit Diagnoses Diagnosis Acute embolism and thrombosis of right axillary vein (CMS/HCC) documented in this encounter Additional Health Concerns Assessment Noted Time A fall risk assessment has been complete d for the patient 05/22/2025 12:34 PM EST A Body Mass Index follow-up plan has been documented for the patient 05/22/2025 1:58 PM EST documented as of this encounter Care Teams Space Operations Officer Relationship Specialty Start Date End Date Adolph Levine DO [address] [place] [address] [place] [id number] (work) PCP - General 03/04/25 documented as of this encounter
--- OUTSIDE RECORDS SUMMARY | 2025-05-22 12:40 | XMS_ITS | Encounter Summary ---
Author Organization Healthcare Address [address] [place] [address] Care Team Providers Care Associate Pastor Name Role Phone Abner Adolph Chary BROOKS Primary Care Provider [phone] Reason for Referral * Imaging (Routine) - Pending Review Specialty Diagnoses / Procedures Referred By Contac t Referred To Contact Cardiology Diagnoses Acute embolism and thrombosis of right axillary vein (CMS/HCC) Sensation of cold in finger Procedures VAS Wrist Brachial Index - Segmental Berto Goodson MD [address] [address] Phone: tel: fax: Referral ID Status Reason Start Date Expiration Date Visits Requested Visits Authorized [id number] Pending Review Perform Procedure 05/22/2025 11/21/2026 1 1 * Imaging (Routine) - Pending Review Specialty Diagnoses / Procedures Referred By Contac t Referred To Contact Cardiology Diagnoses Facial numbness Procedures VAS US Carotid Duplex Bilateral Berto Goodson MD [address] [address] Phone: tel: fax: Referral ID Status Reason Start Date Expiration Date Visits Requested Visits Authorized [id number] Pending Review Perform Procedure 05/22/2025 11/21/2026 1 1 Reason for Visit * Reason Comments Acute embolism and thrombosis of right a xillary vein Encounter Details Date Type Department Care Team (Latest Contact Info) Description 05/22/2025 12:40 PM EST Office Visit [facility] [address] 5th Floor [address] [place] [address] Berto Goodson MD [address] [facility] [address] [place] [address] Acute embolism and thrombosis of [...] thrombectomy was performed by Dr. Palafox at [facility] approximately 3 months ago, resulting in [...] of fainting, particularly when attempting to assistwith ship's carpenter such as showering. These episodes are often [...] SCV Thrombectomy performed by Dr. Camp at [facility] approximately 3 months ago. I personally [...] Info) Description 09/25/2025 7:00 AM EDT Appointment [facility] Lab [address] [place] [address] 09/25/2025 7:30 AM EDT Appointment [facility] [address] [place] [address] 09/25/2025 8:40 AM EDT Office Visit [facility] [address] [place] [address] Berto Goodson MD [address] [facility] [address] [place] [address] Scheduled Orders Name Type Priority Associated Diagnoses [...] documented as of this encounter Care Teams Associate Pastor Relationship Specialty Start Date End Date Adolph Levine DO [address] [place] [address] [place] [address] PCP - General 03/04/25 documented as of this encounter
--- OUTSIDE RECORDS SUMMARY | 2025-06-11 12:50 | XMS_ITS | Encounter Summary ---
Author Organization Healthcare Address [address] [place] [address] Care Team Providers Care Wire Weaving Loom Setter Name Role Phone Adolph Levine Chary DO Primary Care Provider [phone] Encounter Details Date Type Department Care Team (Late st Contact Info) Description 01/31/2025 Orders Only External Location [address] [place] [address] Jahaira Golden, DO [address] [place] [address] Social History Tobacco Use Types Packs/Day Years [...] Info) Description 09/25/2025 7:00 AM EDT Appointment [facility] [address] [place] [address] 09/25/2025 7:30 AM EDT Appointment [facility] [address] [place] [address] 09/25/2025 8:40 AM EDT Office Visit [facility] [address] [place] [address] Berto Goodson MD [address] [facility] [address] [place] [address] documented as of this encounter Procedures Procedure [...] on filedocumented in this encounter Care Teams Wire Weaving Loom Setter Relationship Specialty Start Date End Date Adolhp Levine DO [address] [place] [address] [place] [address] PCP - General 03/04/25 documented as of this encounter
--- OUTSIDE RECORDS SUMMARY | 2025-06-11 12:50 | XMS_ITS | Clinical Summary ---
Author Organization Healthcare Address [address] [place] [address] Care Team Providers Care Calender Feeder Name Role Phone Adolph Levine Primary Care Provider [phone] Allergies No known active allergies Medications bisoprolol [...] Active Continuous Glucose Sensor (Dexcom G7 Sensor) [facility] [place] Active levocetirizine (Xyzal) 5 [...] Description 05/22/2025 12:40 PM EST Office Visit [facility] [address] [place] [address] Berto Goodson MD Acute embolism and thrombosis of right axillary vein (CMS/HCC) (Primary Dx); Sensation of cold in finger; Facial numbness 05/22/2025 11:47 AM EST - 05/22/2025 11:59 PM EST Hospital Encounter [facility] [address] [place] [address] Acute embolism and thrombosis of right axillary vein (CMS/HCC) Discharge Disposition: Home or Self Care 05/22/2025 Orders Only [facility] [address] [place] [address] [address] [place] [address] Berto Goodson MD Acute embolism and thrombosis [...] 7:00 AM EDT Appointment [facility] [address] [place] [address] 09/25/2025 7:30 AM EDT Appointment [facility] [address] [place] [address] 09/25/2025 8:40 AM EDT Office Visit [facility] [address] [place] [address] Berto Goodson MD [address] [place] [address] Health Maintenance Due Date Last Done Comments [...] 02/16/2021 Sigmoidoscopy 02/16/2021 [facility]-Colorectal Cancer Screening 02/16/2021 [id number] Vaccine ( - 2024- season) 2025 [facility]-Influenza [...] 3 Months Insurance [employer] Care Teams Calender Feeder Relationship Specialty Start Date End Date Adolph Levine DO [address] [place] [address] [place] [address] PCP - General 03/04/25
--- OUTSIDE RECORDS SUMMARY | 2025-06-11 12:50 | XMS_ITS | Encounter Summary ---
Author Organization Healthcare Address [address] [place] [address] Care Team Providers Care Formula Checker Name Role Phone Adolph Levine DO Primary Care Provider [phone] Encounter Details Date Type Department Care Team [...] Info) Description 09/25/2025 7:00 AM EDT Appointment [facility] [address] [place] [address] 09/25/2025 7:30 AM EDT Appointment [facility] [address] [place] [address] 09/25/2025 8:40 AM EDT Office Visit [facility] [address] [place] [address] Kellee, Berto C, MD [address] [place] [address] documented as of this encounter Visit Diagnoses Not on filedocumented in this encounter Additional Health Concerns Assessment Noted Time A fall risk assessment has been complete d for the patient 05/22/2025 12:34 PM EST A Body Mass Index follow-up plan has been documented for the patient 05/22/2025 1:58 PM EST documented as of this encounter Care Teams Formula Checker Relationship Specialty Start Date End Date Adolph Levine DO [address] [place] [address] PCP - General 03/04/25 documented as of this encounter
--- OUTSIDE RECORDS SUMMARY | 2025-06-11 12:50 | XMS_ITS | Encounter Summary ---
Author Organization Healthcare Address [address] [place] [address] Care Team Providers Care Fuel Buyer Name Role Phone Adolph Levine DO Primary Care Provider [phone] Encounter Details Date Type Department Care Team (Late st Contact Info) Description 05/22/2025 Orders Only [facility] [address] [place] [address] Berto Goodson MD [address] [facility] [address] [place] [address] Acute embolism and thrombosis of [...] Info) Description 09/25/2025 7:00 AM EDT Appointment [facility] [address] [place] [address] 09/25/2025 7:30 AM EDT Appointment [facility] [address] [facility] 5th Floor [address] [place] [address] 09/25/2025 8:40 AM EDT Office Visit [facility] [address] [facility] 5th Floor [address] [place] [address] Berto Goodson MD [address] [facility] [address] [place] [address] documented as of this encounter [...] documented as of this encounter Care Teams Fuel Buyer Relationship Specialty Start Date End Date Adolph Levine DO [address] [place] [address] [place] [address] PCP - General 03/04/25 documented as of this encounter
--- OUTSIDE RECORDS SUMMARY | 2025-06-11 12:50 | XMS_ITS | Encounter Summary ---
Author Organization Healthcare Address [address] [place] [address] Care Team Providers Care Special Delivery Carrier Name Role Phone Adolph Levine DO Primary Care Provider [phone] Encounter Details Date Type Department Care Team (Late st Contact Info) Description 01/31/2025 Orders Only External Location [address] [place] [address] Provider, External Social History Tobacco Use Types [...] Info) Description 09/25/2025 7:00 AM EDT Appointment [facility] [address] [place] [address] 09/25/2025 7:30 AM EDT Appointment [facility] [address] [place] [address] 09/25/2025 8:40 AM EDT Office Visit [facility] [address] [place] [address] Berto Goodson MD [address] [facility] [address] [place] [address] documented as of this encounter Procedures Procedure [...] on filedocumented in this encounter Care Teams Special Delivery Carrier Relationship Specialty Start Date End Date Adolph Levine DO [address] [place] [address] [place] [address] PCP - General 03/04/25 documented as of this encounter
--- OUTSIDE RECORDS SUMMARY | 2025-06-11 12:50 | XMS_ITS | Encounter Summary ---
Author Organization Healthcare Address [address] [place] [address] Care Team Providers Care Entertainment Usher Name Role Phone Adolph Levine Chary DO Primary Care Provider Encounter Details Date Type Department Care Team (Late st Contact Info) Description 01/31/2025 Orders Only External Location [address] [place] [address] Jahaira Golden, DO [address] [place] [address] Social History Tobacco Use Types Packs/Day Years [...] Info) Description 09/25/2025 7:00 AM EDT Appointment [facility] [address] [place] [address] 09/25/2025 7:30 AM EDT Appointment [facility] [address] [place] [address] 09/25/2025 8:40 AM EDT Office Visit [facility] [address] [place] [address] Berto Goodson MD [address] [facility] [address] [place] [address] documented as of this encounter Procedures Procedure [...] on filedocumented in this encounter Care Teams Entertainment Usher Relationship Specialty Start Date End Date Adolph Leivne DO [address] [place] [address] PCP - General 03/04/25 documented as of this encounter
--- NOTE | 2025-06-11 13:00 | US_ITS ---
FINAL REPORT CLINICAL HISTORY: Evaluation of Decreased Pedal Pulses DM, CAD, HTN, HLD FINDINGS: ANKLE-BRACHIAL PRESSURE INDICES Pressure indices are as follows: RIGHT LOWER EXTREMITY: Ankle-brachial pressure index: 0.88 Comments: Mild to moderate disease LEFT LOWER EXTREMITY: Ankle-brachial pressure index: 0.76 Comments: Mild to moderate disease IMPRESSION: Mild to moderate peripheral vascular disease of the bilateral lower extremities Reviewed, Interpreted and Dictated by Manjula Carty MD Transcribed by Joseline Cooper Authenticated and [facility]
--- NOTE | 2025-06-11 13:45 | MR_ITS ---
FINAL REPORT TECHNIQUE: Multiplanar and multisequence imaging of the brain was obtained before and after contrast administration. CLINICAL HISTORY: syncope. episode where right sided facial numbness [id number]. dizziness and blurred vision after squatting. FINDINGS: Brain parenchymal: There is no mass effect or midline shift. There are no areas of abnormal signal intensity.The cerebellum and brainstem are without acute abnormality. Ventricles: The ventricles are symmetric in size and configuration without hydrocephalus. Extra-axial spaces: No extra-axial fluid collections. Diffusion imaging: No areas of restricted diffusion to suggest acute infarct. Flow voids: Flow voids within the major intracranial vessels are preserved. Soft tissues: There is partial opacification of the left frontal sinus. Post contrast imaging: No abnormal enhancement. IMPRESSION: No acute intracranial abnormality and no pathologic contrast enhancement. Reviewed, Interpreted and Dictated by Manjula Carty MD Transcribed by Ame Hillman Authenticated and [facility]
[2025-06-11] MEDS: SODIUM CHLORIDE 0.9% 10ML SYR (RAD ONLY) 10 ML IV (14:19)
[2025-06-11] MEDS: GADOTERIDOL INJ 20ML SYRINGE 17 ML IV (14:19)
== END 2025-06-11 23:59 | disposition home or self-care (01) ==
LOC: RT 12:44
PROVIDERS: PCP Internal Medicine; Visit Provider Nurse Practitioner
DX: I73.9 Peripheral vascular disease, unspecified (principal); R55 Syncope and collapse; R20.0 Anesthesia of skin; R20.2 Paresthesia of skin; R20.8 Other disturbances of skin sensation; E11.9 Type 2 diabetes mellitus without complications; I25.10 Atherosclerotic heart disease of native coronary artery without angina pectoris; E78.5 Hyperlipidemia, unspecified; I10 Essential (primary) hypertension
CPT/HCPCS: 70553; 93923; A9576

== ENCOUNTER 2025-07-08 08:20 | Day surgery (SDC) | payer MEDICAID, SELFPAY ==
[2025-07-08] VITALS (11 sets, daily range): BP systolic 107–165; BP diastolic 58–86; PULSE 50–68; RESP 15; TEMP 36.1; O2SAT 92–99; BMI 30.2
--- NOTE | 2025-07-08 07:12 | IR_ITS ---
APPROVED REPORT Patient Location: Outpatient PROCEDURES Right radial arterial access Catheter placed in the distal abdominal aorta Distal abdominal aortogram Catheter placement in the right external iliac artery Right external iliac artery selective antegrade angiogram with unilateral runoff to the right foot Catheter placement in the left external iliac artery Left external iliac artery selective antegrade angiogram with unilateral runoff to the left foot INDICATION Abnormal CURTIS, Stephane claudication class III Informed consent was obtained prior to the procedure. COMPLICATIONS NONE Estimated Blood Loss: LESS THAN 10 ML TECHNIQUE One percent lidocaine used to anesthetize the right anterior aspect of the wrist. The right radial artery was accessed via the Seldinger technique. A 6 Japanese sheath was placed in the right radial artery. 2.5 mg of Verapamil, 800 mcg of nitroglycerin, 1mg Lidocaine and 5000 U Heparin were given through the arterial sheath. A PV multi curve catheter was advanced to the right external iliac artery where external iliac artery antegrade angiography was performed with unilateral runoff to the right foot. This procedure was repeated in the left external iliac artery. Following this angiogram the catheter was pulled back to the distal abdominal aorta where distal abdominal aortography with bilateral iliofemoral angiography was performed. At the end the procedure the apparatus was removed the sheath was removed and hemostasis was achieved using TR banding patient was transferred to the postop boarding in stable condition ANGIOGRAPHIC RESULTS Distal abdominal aorta is normal Bilateral common internal and external iliac arteries are normal Bilateral common femoral and profunda femoris arteries are normal Bilateral superficial femoral arteries are normal with normal three-vessel runoff below the knee to the ankles bilaterally IMPRESSION Normal iliofemoral angiography with normal three-vessel runoff below the knee bilaterally PLAN 1. Evaluation of nonvascular claudication Electronically signed by : Adolph Camp MD 07/08/2025 11:38:44
[2025-07-08 08:43] LABS: Hematocrit 43.4 % (42.0-52.0); Hemoglobin 14.9 g/dL (14.1-18.0); Immature Granulocytes % 0.5 %; Mean Corpuscular HGB Conc 34.3 g/dL (31.8-35.4); Mean Corpuscular Hemoglobin 30.2 pg (27.0-31.2); Mean Corpuscular Volume 88.0 fl (80-94); Nucleated Red Blood Cells % 0 %; Platelet Count 260 K/mm3 (142-424); Red Blood Count 4.93 M/mm3 (4.60-6.20); Red Cell Distribution Width-SD 37.9 fL; White Blood Count 8.3 K/mm3 (4.8-10.8)
[2025-07-08 08:49] LABS: Chloride 103 mmol/L (98-107); Potassium 3.7 mmoL/L (3.5-5.1); Sodium 141 mmol/L (136-145)
[2025-07-08 08:52] LABS: Anion Gap 13.7 mEq/L (5-15); Blood Urea Nitrogen 18 mg/dl (9-20); Calcium 9.9 mg/dl (8.4-10.2); Carbon Dioxide 28 mmol/L (22.0-30.0); Creatinine Clearance Estimated 111 mL/min (50-200); Creatinine,Serum 1.00 mg/dl (0.66-1.25); Estimated Glomerular Filt Rate 79 ml/min (>60); GFR (African American) 96 ML/MIN (>60); Glucose 173 mg/dl (74-100)
[2025-07-08] MEDS: HEPARIN 1,000 UNITS/ML 10ML VIAL (CATH LAB) 5000 UNIT IV (10:50)
[2025-07-08] MEDS: VERAPAMIL 2.5MG/ML 2ML VIAL 2.5 MG IV (10:50)
[2025-07-08] MEDS: HEPARIN 1,000 UNITS/500ML NS (CATH LAB) 3000 UNIT IV (10:50)
[2025-07-08] MEDS: NITROGLYCERIN 800MCG/8ML SYR (CATH LAB) 800 MCG IA (10:51)
[2025-07-08] MEDS: LIDOCAINE 1% 10ML MDV 10 ML IJ (10:51)
[2025-07-08] MEDS: 0.9 % SODIUM CHLORIDE 500 ML 25 ML IV (10:51)
[2025-07-08] MEDS: MIDAZOLAM HCL 1MG/ML 5ML VIAL 1 MG IV (10:51)
[2025-07-08] MEDS: FENTANYL 100MCG/2ML VIAL 50 MCG IV (10:52)
[2025-07-08] MEDS: IOHEXOL-240 100ML BOTTLE 100 ML IV (15:59)
== END 2025-07-08 14:25 | disposition home or self-care (01) ==
LOC: CATHLAB 08:21
PROVIDERS: PCP Internal Medicine; Visit Provider Internal Medicine
DX: E11.51 Type 2 diabetes mellitus with diabetic peripheral angiopathy without gangrene (principal); I70.213 Atherosclerosis of native arteries of extremities with intermittent claudication, bilateral legs; R55 Syncope and collapse; I82.A11 Acute embolism and thrombosis of right axillary vein; I10 Essential (primary) hypertension; R93.1 Abnormal findings on diagnostic imaging of heart and coronary circulation; R94.31 Abnormal electrocardiogram [ECG] [EKG]; R94.39 Abnormal result of other cardiovascular function study; I25.119 Atherosclerotic heart disease of native coronary artery with unspecified angina pectoris; R68.89 Other general symptoms and signs; I25.2 Old myocardial infarction; Z79.01 Long term (current) use of anticoagulants; Z79.84 Long term (current) use of oral hypoglycemic drugs; Z79.899 Other long term (current) drug therapy; Z82.49 Family history of ischemic heart disease and other diseases of the circulatory system
CPT/HCPCS: 36200; 80048; 85025; 99152; C1725; C1769; J1200; J1644; J2003; J3010; J7040; Q9966